=== PATIENT | male | born 1940 | race Caucasian/White ===

== ENCOUNTER 2016-07-14 12:00 | Inpatient (IN) | payer MEDICARE, MEDICAID ==
[~2016-07-14] VITALS: Ht 191.8 cm; Wt 120.4 kg
--- NOTE | ~2016-07-14 | CON ---
PATIENT'S NAME: JEFFREY Moss [facility] AGE: 76 Y [address] ROOM: [address] [address] LOCATION: GPCU ADMIT DATE: 07/14/2016 Consultation DISCHARGE DATE: FAMILY PHYSICIAN: Augustine Menon ATTENDING PHYSICIAN: Samira SZYMANSKI DATE OF CONSULTATION: 07/21/2016 REASON FOR CONSULT: Need for urgent hemodialysis, unsuccessful attempts at temporary dialysis access. HISTORY OF PRESENTING ILLNESS: This is a 76-year-old, male, admitted to [facility] after experiencing episodes of syncope with fall. This resulted in hemorrhage to his right kidney. The patient has known chronic kidney disease with a baseline creatinine of approximately 3.3. Creatinine was elevated on admission and currently remains 5.2. The patient also had elevated potassium on admission requiring treatment. The patient has had multiple failed attempts at temporary dialysis access and currently has no adequate access for dialysis. So far attempts of insertion to right internal jugular, right subclavian, and left subclavian. The patient is chronically on Coumadin for history of DVT, however, this is currently on hold for recent hemorrhage. Serial hemoglobin and hematocrits have been obtained and hemoglobin currently stable. The patient received 4 units of FFP to reverse INR level of 4 on admission. The patient denies any shortness of breath or chest pain. He denies nausea, vomiting, diarrhea or constipation. He denies any abdominal pain. Denies claudication. Denies any recent hematuria or melena since admission. Denies any fevers, chills or weakness. The patient has no history of previous dialysis access. History is positive for dyspnea on exertion. Positive for significant urine decreased prior to hospitalization. The patient has a history of alcoholism. Positive for ecchymosis and abrasions after a fall. PAST MEDICAL HISTORY: 1. Chronic kidney disease stage 3 to 4. 2. 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 3. Ischemic cardiomyopathy status post AICD. 4. Bladder cancer. 5. Prostate cancer. 6. Peptic ulcer disease. 7. Erectile dysfunction. 8. Hypertension. 9. Renal insufficiency. 10. History of obstructive uropathy. 11. History of tobacco abuse. PATIENT'S NAME: JEFFREY Moss [facility] AGE: 76 Y [address] ROOM: [address] [address] LOCATION: GPCU ADMIT DATE: 07/14/2016 Consultation DISCHARGE DATE: FAMILY PHYSICIAN: Augustine Menon ATTENDING PHYSICIAN: Samira SZYMANSKI PAST SURGICAL HISTORY: 1. AICD placement. 2. Radical cystectomy with ileal conduit formation. 3. Radiation therapy. 4. Laminectomy. 5. Left wrist surgery. 6. Right elbow surgery. 7. Surgical debridement of wound dehiscence. FAMILY HISTORY: Mother with hypertension and breast cancer. A brother with coronary artery disease and diabetes, and a daughter who from pulmonary embolism. SOCIAL HISTORY: The patient is a former smoker who quit approximately 20 years ago. He continues to drink 3 to 4 beers a day. Denies any illicit or illegal drug use. CURRENT MEDICATIONS: See medication record. ALLERGIES: IODINE, CONTRAST DYE AND PENICILLIN. REVIEW OF SYSTEMS: 12-point review of systems completed, positives addressed in history of presenting illness. PHYSICAL EXAMINATION: VITAL SIGNS: Heart rate 90, temperature 97.8, respiratory rate 12, oxygen saturations 92%, blood pressure 131/59. GENERAL: The patient is alert and oriented x3, in no acute distress or pain. SKIN: Overall warm, pink, and dry. He has scattered abrasions and ecchymosis to his face and left arm. NEUROLOGICAL: No focal deficits. Answers questions appropriately and follows commands. Equal strength bilaterally, 5/5. Normal sensation. HEENT: Head: Normocephalic and atraumatic. Ears: Without drainage. Eyes: Sclerae white. Conjunctivae pink. Extraocular movements intact. PERRLA. Mouth: Oral mucosa pink and moist. NECK: Without adenopathy. No evidence of JVD. No carotid bruit. Trachea is midline. RESPIRATORY: Lung sounds diminished bilaterally and expiratory wheezing on the right side, otherwise breath sounds are even and nonlabored. CARDIOVASCULAR: Regular rate and rhythm. No murmur or extra sounds. PATIENT'S NAME: TESS KIDD [facility] AGE: 76 Y [address] ROOM: [address] [place] [id number] LOCATION: GPCU ADMIT DATE: 07/14/2016 Consultation DISCHARGE DATE: FAMILY PHYSICIAN: Augustine Menon ATTENDING PHYSICIAN: Samira SZYMANSKI GASTROINTESTINAL: Bowel sounds active x4 quadrants. Soft. No organomegaly. Obese. EXTREMITIES: No cyanosis. No edema. Warm to touch. Bilateral radial and brachial pulses 2+. Active range of motion throughout. Lower extremity venous stasis. LABORATORY DATA: Chemistry: Sodium 136, potassium 4.4, chloride 103, CO2 25, BUN 68, creatinine 5.2, glucose 118, GFR 11, Hematology: Hemoglobin 8.4 and hematocrit 25.5. IMPRESSION: 1. Acute on chronic kidney injury. 2. Alcohol abuse. 3. Obesity. 4. Syncope. 5. Hyperkalemia. 6. History of deep venous thrombosis. PLAN: Per Nephrology, the patient will require hemodialysis. At this time, the patient does not have access and has had multiple failed attempts at temporary catheter placement. Though the patient has adequate veins on vein mapping for fistula, an AV fistula will take months to mature. At this time, we are unable to use the left arm due to presence of an abrasion. Vein mapping completed and reveals an adequate axillary vein on the right to support a graft. Therefore, we will plan for surgery for right arm Acuseal graft tomorrow, 07/22/[address] Dumont. Acuseal graft will be ready to use on the same day postoperatively for dialysis. Dr. Dumont has discussed risks and benefits with the patient. The patient is to remain n.p.o. after midnight and to receive 900 mg IV clindamycin prior to procedure. The patient's Coumadin has been on hold due to recent bleeding. The patient verbalizes understanding this plan and has no further questions or concerns at this time. Thank you for your consultation and for allowing us to participate in the care of this patient. ANNMARIE ROSALES APRN FOR DECLAN DUMONT MD TO/mihai PATIENT'S NAME: TESS KIDD [facility] AGE: 76 Y [address] ROOM: [place] [address] LOCATION: GPCU ADMIT DATE: 07/14/2016 Consultation DISCHARGE DATE: FAMILY PHYSICIAN: [employer], M. Juaquin ATTENDING PHYSICIAN: Samira SZYMANSKI /[id number] d: 07/22/16 0225 t: 08/02/16 1210, CONSULTATION REPORT
--- NOTE | ~2016-07-14 | ENPV ---
Vascular Upper Extremities Veins and Upper Extremity Vein Mapping Procedure Demographics Patient Name TESS KIDD Date of Study 07/21/2016 Patient Number [id number] Gender Male Date of 1940 Age 76 Visit Number [id number] Height Accession Number [id number] Weight Room Number G6319 BSA BMI Referring Tim Francis MD Interpreting Tim Francis MD Physician Radha Hogan Physician Physician Ordering Physician Tim Francis MD Cupola Melter Helper Wash Test Checker Camilo Walker [facility] Conclusions Summary The subclavian, axillary, brachial, basilic and cephalic veins have been examined and found to be widely patent. The cephalic and basilic vein(s) were mapped and are adequate for surgical use . The axillary, cephalic, and basilic vein diameters as listed. Procedure Type of Study: Veins:Upper Extremities Veins, Upper Extremity Right, Upper Extremity Vein Mapping, Pre-Fistula Evaluation NH. Indications for Study:Pre-op Fistulat map. Appropriate Use Criteria:9 Patient Status:Routine. Study Location:Inpatient Portable. Technical Quality:Adequate visualization. Velocities are measured in cm/s ; Diameters are measured in cm Right UE Vein Measurements 2D and Doppler Measurements + + + + +--------+ + !Location !Visualized !Compressibility !Thrombosis !Signal !Reflux ! + + + + +--------+ + !SCV !Yes !Yes !None !Phasic ! ! + + + + +--------+ + !Axillary !Yes !Yes !None !Phasic ! ! + + + + +--------+ + !Brachial !Yes !Yes !None !Phasic ! ! + + + + +--------+ + !Basilic !Yes !Yes !None !Phasic ! ! + + + + +--------+ + !Cephalic !Yes !Yes !None !Phasic ! ! + + + + +--------+ + Velocities are measured in cm/s ; Diameters are measured in cm Cephalic Mapping + ++---------+ +----+---------+ + ! !!Right ! !Left! ! ! + ++---------+ +----+---------+ + !Location !!AP Diam. !Trans Diam ! !AP Diam. !Trans Diam ! + ++---------+ +----+---------+ + !Cephalic at Prox UA !!0.45 !0.43 ! ! ! ! + ++---------+ +----+---------+ + !Cephalic at Mid UA !!0.47 !0.39 ! ! ! ! + ++---------+ +----+---------+ + !Cephalic at Dist UA !!0.37 !0.45 ! ! ! ! + ++---------+ +----+---------+ + !Cephalic at AF !!0.24 !0.28 ! ! ! ! + ++---------+ +----+---------+ + !Cephalic at Prox LA !!0.27 !0.4 ! ! ! ! + ++---------+ +----+---------+ + !Cephalic at Mid LA !!0.29 !0.33 ! ! ! ! + ++---------+ +----+---------+ + !Cephalic at Dist LA !!0.23 !0.29 ! ! ! ! + ++---------+ +----+---------+ + Basilic Mapping + ++-------+ +----+--------+ + ! !!Right ! !Left! ! ! + ++-------+ +----+--------+ + !Location !!AP Diam!Trans Diam ! !AP Diam !Trans Diam ! + ++-------+ +----+--------+ + !Basilic at Prox UA !!0.55 !0.5 ! ! ! ! + ++-------+ +----+--------+ + !Basilic at Mid UA !!0.53 !0.58 ! ! ! ! + ++-------+ +----+--------+ + !Basilic at Dist UA !!0.49 !0.49 ! ! ! ! + ++-------+ +----+--------+ + !Basilic at AF !!0.37 !0.39 ! ! ! ! + ++-------+ +----+--------+ + !Basilic at Prox LA !!0.27 !0.27 ! ! ! ! + ++-------+ +----+--------+ + !Basilic at Mid LA !!0.25 !0.25 ! ! ! ! + ++-------+ +----+--------+ + !Basilic at Dist LA !!0.21 !0.19 ! ! ! ! + ++-------+ +----+--------+ + Signature dtt: DECLAN WERNER dtely: 07/21/16 1611 Physician Self Edit
--- NOTE | ~2016-07-14 | HP ---
PATIENT'S NAME: TESS KIDD [facility] AGE: 76 Y [address] ROOM: [address] [place], [place] [address] LOCATION: [facility] ADMIT DATE: 07/14/2016 History & Physical DISCHARGE DATE: FAMILY PHYSICIAN: PHYSICIAN, UNKNOWN ATTENDING PHYSICIAN: Samira SZYMANSKI DATE OF SERVICE: CHIEF COMPLAINT: Syncope and right flank pain. HISTORY OF PRESENT ILLNESS: The patient is a 76-year-old gentleman with past medical history of DVT, on Coumadin; alcoholic cardiomyopathy, status post AICD; bladder cancer, status post chemoradiation with ileal conduit; and prostate cancer, status post TURP, who presents here from outside hospital with flank pain, syncope, and hyperkalemia. The patient reports that yesterday he got up from his chair and was trying to go to get his medication when he felt dizziness and fell to floor. The patient reports that he has lost his conscious and did not know for how long he lost his consciousness. The patient was able to crawl and called the EMS which brought him to [facility]. In [facility], the patient had a CT head and neck that was unrevealing. On labs, the patient was found to have potassium of 5.8 and creatinine of 3.8. The patient was given Lasix, IV fluid, and Kayexalate. The patient's lab was redrawn today this morning and shows potassium of 5.7 and creatinine of 5.3. As the patient has a chronic kidney disease stage III-IV and is followed by Dr. Menon, the patient was sent to our hospital for further investigation. The patient was also started on ceftriaxone for suspicious UTI. The patient reports that he lives by himself. He drinks 3-4 beers every day and denies history of withdrawal. The patient reports that he has heart failure and he is able to have some moderate activity with dyspnea. The patient reports that he has been experiencing right flank pain since Tuesday and decreased urine output through his Agosto catheter. He also reports that his urine appears cloudy. The patient denies chest pain, worsening shortness of breath, fever, chills, nausea, vomiting, or diarrhea. The patient reports that some pain around his head and back after the fall. MEDICAL HISTORY: 1. History of DVT, on Coumadin. 2. Ischemic cardiomyopathy, status post AICD. 3. Bladder cancer. 4. Prostate cancer. SURGICAL HISTORY: AICD placement. Ileal conduit placement. PATIENT'S NAME: TESS KIDD [facility] AGE: 76 Y [address] ROOM: [address] [place], [place] [address] LOCATION: [facility] ADMIT DATE: 07/14/2016 History & Physical DISCHARGE DATE: FAMILY PHYSICIAN: PHYSICIAN, UNKNOWN ATTENDING PHYSICIAN: Samira SZYMANSKI FAMILY HISTORY: Mother has hypertension and breast cancer, brother has heart disease and diabetes, and daughter of PE. SOCIAL HISTORY: He is a former smoker, quit in 1996 and he currently drinks 3-4 beers a day. MEDICATIONS: See MAR. REVIEW OF SYSTEMS: All systems have been reviewed and are negative except for what is mentioned in the HPI. PHYSICAL EXAMINATION: VITAL SIGNS: Afebrile. The patient is tachycardic with heart rate of 105. HEENT: Head: Normocephalic, atraumatic. Face: The patient has abrasion on his forehead and also abrasion around his right periorbital area with dressing on. Nose: No nasal discharge. Ears: No Arana sign. No ear discharge. NECK: Supple. CHEST: Decreased breath sounds in right lower lung clemente. No rhonchi, rales, or wheezes heard. HEART: Tachycardic. No murmurs, rubs, or gallops heard. ABDOMEN: Mild tenderness around the lower abdominal area with no rebound or guarding. Mild fluid shift noted. EXTREMITIES: Trace edema bilaterally. Lower extremity venous stasis change. SKIN: Extensive senile purpura of left upper extremity. Left upper extremity abrasion with dressing on, stable. MIDDLE CARD TENDER: The patient is alert and oriented x3. Motor and sensory, grossly intact. LABORATORY DATA: Sodium of 140, potassium of 5.4, CO2 of 18, glucose of 131, BUN of 66, and creatinine of 5.8. Albumin of 2.7. EKG: Normal sinus rhythm. No peaked T-waves or loss of P and QRS of 79 msec. ASSESSMENT AND PLAN: The patient is a 76-year-old gentleman with past medical history of chronic kidney disease, stage IV; history of deep venous thrombosis, on Coumadin; systolic congestive heart failure; bladder cancer; prostate cancer; and alcohol abuse, who presents here with syncope, right flank pain, and hyperkalemia. 1. Pyelonephritis. The patient is presenting with possible sepsis secondary PATIENT'S NAME: TESS KIDD [facility] AGE: 76 Y [address] ROOM: [address] [place], [place] [address] LOCATION: [facility] ADMIT DATE: 07/14/2016 History & Physical DISCHARGE DATE: FAMILY PHYSICIAN: PHYSICIAN, UNKNOWN ATTENDING PHYSICIAN: Samira SZYMANSKI to pyelonephritis as the patient has CVA tenderness and a UA that shows worsening cloudy urine. Urine culture is pending and blood culture is pending. The patient has had history of Enterococcus and E. coli infection in the past. We will start the patient on ceftriaxone and Zyvox. We will acquire a CT abdomen to further rule out obstructive pyelonephritis and also we will assess if the patient has ascites. I suspect the patient might have an underlying ascites even though the physical examination was difficult due to the patient's body habitus. We will acquire lactate and we will start gentle IV fluid hydration with half normal saline with 50 mEq of bicarbonate. 2. Acute on chronic kidney disease. The patient's renal function did not improve with Lasix and fluid administration. At this time, the patient appears stable. We will acquire a chest x-ray. We will start the patient on gentle hydration. I also suspect the patient might have some hepatorenal syndrome; however, we will first acquire CT just to assess for ascites. The patient might benefit from albumin challenge. We will consult Nephrology, Dr. Menon to follow up with the patient. 3. Hyperkalemia. Hyperkalemia etiology most likely secondary to kidney failure. Currently potassium is 5.4. There were no EKG changes. We will keep the patient on tele monitor. We will change IV fluids to half- normal saline with 50 mEq of bicarb and follow potassium daily. We will treat underlying etiology. 4. Alcoholic cardiomyopathy. The patient is currently not on diuretics at home. Currently, the patient is on gentle IV fluid hydration. We will keep continuous O2 saturation monitor. We will also acquire chest x-ray to further investigate if the patient has worsening of heart failure. We will continue the patient's Coreg at this moment. We will not start the patient on ANTONIO and ARB currently due to his BERTO. 5. History of deep venous thrombosis. The patient is currently on Coumadin. We will continue Coumadin. INR done at the outside hospital was 3. Pharmacy to dose Coumadin. 6. Syncope, etiology unknown. I suspect the patient might have some arrhythmia issue during his last syncope. Thus, we will acquire AICD interrogation to further investigate his heart status during his syncope. We will also acquire an echocardiogram for further investigation of structural heart disease. 7. Alcohol abuse. Discussion made about cessation. The patient reports he drinks up to 4 beers a day. He denies history of withdrawal. We will start the patient on thiamine 100 mg p.o. daily. We will assess for withdrawal during this admission. 8. Obesity, ongoing. I have personally reviewed the patient's medical record. Total time spent with the patient is greater than 70 minutes, more than 50% of the time is spent in direct patient care and patient consultation. The case was reviewed with the patient and nursing staff. All questions were answered to the PATIENT'S NAME: TESS KIDD [facility] AGE: 76 Y [address] ROOM: [place] [address] LOCATION: [facility] ADMIT DATE: 07/14/2016 History & Physical DISCHARGE DATE: FAMILY PHYSICIAN: PHYSICIAN, UNKNOWN ATTENDING PHYSICIAN: Samira SZYMANSKI patient's satisfaction. The patient will be admitted to PCU. The patient's code status is full code on admission. MD JOYCE MASSEY/mihai /[id number] D: T: [id number] HISTORY & PHYSICAL
--- NOTE | ~2016-07-14 | HP ---
PATIENT'S NAME: TESS KIDD [facility] AGE: 76 Y [address] ROOM: [address] [place] [address] LOCATION: [facility] ADMIT DATE: 07/14/2016 History & Physical DISCHARGE DATE: FAMILY PHYSICIAN: PHYSICIAN, UNKNOWN ATTENDING PHYSICIAN: Samira SZYMANSKI DATE OF SERVICE: ADDENDUM: This note is an addendum for initial H and P. The patient's CT of abdomen and pelvis shows huge right renal hemorrhage with surrounding perinephric edema. Also showed end-stage appearing left kidney which has decreased in size since previous CT. Right kidney essentially enveloped by this large bleed. Also shows liver, spleen, pancreas, and biliary tree to be normal. Right renal hemorrhage with surrounding perinephric edema. Etiology most likely secondary to fall and an INR level of 4. INR at outside hospital was 3, here repeated was 4. Hemoglobin is also 8. We will transfuse 4 units of FFP to decrease the INR level. We will check INR level 1 hour after FFP transfusion. We will also check hemoglobin every 8 hours. We will to transfuse for hemoglobin below 7. I have also involved Urology. Discussed with Dr. Colindres. Suggested reversal of INR with FFP and strict bedrest. Also, discussed finding with Dr. Menon. The patient most likely will end up being on dialysis on this admission. Finding was discussed with the patient. All questions were answered satisfactorily. MD JOYCE MASSEY/mihai /[id number] D: T: [id number] HISTORY & PHYSICAL
--- NOTE | ~2016-07-14 | OR ---
PATIENT'S NAME: TESS KIDD [facility] AGE: 76 Y [address] ROOM: [place] [address] LOCATION: GICU ADMIT DATE: 07/14/2016 OR/Procedure Report DISCHARGE DATE: FAMILY PHYSICIAN: PHYSICIAN, UNKNOWN ATTENDING PHYSICIAN: Samira SZYMANSKI SURGEON: Wisam Urrutia DO LINE LOCATOR: DATE OF PROCEDURE: 07/15/2016 PREOPERATIVE DIAGNOSIS: Need for urgent hemodialysis. POSTOPERATIVE DIAGNOSES: 1. Need for urgent hemodialysis. 2. Difficult venous access secondary to multiple central venous occlusions/stenoses. PROCEDURE: 1. Insertion of right femoral vein temporary hemodialysis catheter. 2. Attempted insertion of right internal jugular, right subclavian and left subclavian vein with of the each attempt. DESCRIPTION OF PROCEDURE: Mr. Rangel is a 76-year-old white male with the above-noted diagnosis. He states that he has a difficult IV access and has had multiple central lines in the remote past. Recently, he had a failed attempt at a transvenous ICD from the right subclavian area and told me he had a port in the left chest area, that developed problems and had to be removed. His anterior chest wall does show evidence of pronounced subcutaneous veins, especially over the left subclavian system and also some over the left shoulder as well as the right shoulder and chest area. We began with the right internal jugular vein. It was difficult to visualize with ultrasound, but we did not visualize one window, however, could not access the vein without significant resistance, likely from scar tissue at the area, and turned our attention with the ultrasound to the left internal jugular area and could not visualize the left internal jugular vein on ultrasound. I attempted the left subclavian, did get access, but again a wire would not feed and finally the right subclavian would access, the wire would feed to approximately 11 cm, however, met significant resistance at this point. Therefore, these sites were abandoned, we turned our attention to the right femoral vein. This area was again sterilely prepped and draped, 1% lidocaine infiltrated, and the vein was accessed without difficulty and a guidewire fed without any resistance. A stab incision was made at the base of the needle, and the needle was withdrawn. Soft tissue after dilators x2 were placed over the guidewire and withdrawn and then a temporary hemodialysis catheter was placed over the guidewire, and the guidewire was withdrawn. Each lumen aspirated very easily for dark venous blood and was flushed with sterile PATIENT'S NAME: TESS KIDD [facility] AGE: 76 Y [address] ROOM: [place] [address] LOCATION: [facility] ADMIT DATE: 07/14/2016 OR/Procedure Report DISCHARGE DATE: FAMILY PHYSICIAN: PHYSICIAN, UNKNOWN ATTENDING PHYSICIAN: Samira SZYMANSKI. Two dialysis lumens were then locked with heparin. It was secured into position with a 2-0 nylon and sterile dressing was applied. Chest x-ray is pending. DO DEV GEE/mihai /[id number] d: 07/15/16 1826 t: 07/16/16 0838, OPERATIVE SUMMARY
--- NOTE | ~2016-07-14 | DS ---
PATIENT'S NAME: JEFFREY Moss [facility] AGE: 76 Y [address] ROOM: [place] [address] LOCATION: GPCU ADMIT DATE: 07/14/2016 Discharge Summary DISCHARGE DATE: 07/29/2016 FAMILY PHYSICIAN: Sunday Menon MD ATTENDING PHYSICIAN: Samira SZYMANSKI PRINCIPAL DISCHARGE DIAGNOSIS: Severe sepsis, secondary to Enterobacter cloacae, urinary tract infection. SECONDARY DIAGNOSES: 1. Right renal hemorrhage, status post fall, on chronic anticoagulation therapy. 2. Laccq-ay-xoxsxka kidney disease with acute kidney injury. 3. Chronic kidney disease, stage 3, on admission, and end-stage renal disease, on hemodialysis, at the time of discharge. 4. 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 5. Chronic systolic and diastolic congestive heart failure. 6. Obesity. 7. Constipation. 8. Dyspepsia. 9. History of recurrent deep vein thrombosis. 10. Paroxysmal atrial fibrillation was in normal sinus rhythm for most of the hospitalization. 11. Alcohol use without history of withdrawal. 12. Chronic urostomy, status post bladder resection for cancer. 13. Hyperkalemia. CONSULTATIONS: 1. Dr. Menon from Nephrology. 2. Urology. PROCEDURES: 1. Acuseal graft placement on 07/22/2016 in the right upper arm. 2. Temporary dialysis catheter in the right groin. BRIEF HISTORY: Mr. Rangel is a very pleasant 76-year-old gentleman with those things I said admitted from the outside hospital after he fell and had some loss of consciousness and was brought to the [facility]. It was found that he had elevated potassium and a creatinine of 3.8. He was transferred from [facility] with suspicion for UTI. He was initially treated with ceftriaxone. Imaging showed a large retroperitoneal hemorrhage, urine culture eventually led to Enterobacter cloacae, which was susceptible to Levaquin; although, it was multidrug-resistant and he completed a course of Levaquin and no antibiotics were continued after that. PATIENT'S NAME: JEFFREY Moss [facility] AGE: 76 Y [address] ROOM: [place] [address] LOCATION: GPCU ADMIT DATE: 07/14/2016 Discharge Summary DISCHARGE DATE: 07/29/2016 FAMILY PHYSICIAN: Sunday Menon MD ATTENDING PHYSICIAN: Samira SZYMANSKI The patient was initially treated with fluids and some Lasix and his renal function did not improve. He required emergent dialysis. Eventually after attempts at the tunnel cath on 07/22/2016 were unsuccessful, he had the Acuseal graft placed on 07/23/2016, and that worked well at dialysis. Although, it was noted the patient tended to clot easily, by the end of dialysis required extra heparin. The patient is very pleasant during his stay and did not appear to have any withdrawal symptoms. He was started on thiamine and continued with this during the hospitalization. The patient did have anemia, status post retroperitoneal hemorrhage, and was transfused with 2 units early in the hospitalization and his hemoglobin stabilized. He will be treated with iron in dialysis and his hemoglobin on day of discharge was 8.9. The patient did develop some nausea with vomiting and several days prior to discharge he was complaining of what he called a sour stomach and took a lot of Tums. He was struggling with having a bowel movement despite increasing bowel regimen for him. He ended up requiring Fleet's enema with some mag citrate. He had 3 bowel movements on the day prior to discharge, but still had some vomiting on the morning of. His discharge abdominal film showed some dilated loops and perhaps early ileus, but he was able to move his bowels well after the Fleet's enema and mag citrate. I did discuss his current issues with Tracy Triana and she agreed to accept him in transfer to [facility]. The patient had intermittent nonsustained episodes of v-tach, which were also asymptomatic. He does have an AICD in place and known alcoholic cardiomyopathy, which is followed by the help desk assistant that he can see in [place]. We did increase his Coreg for this. INSTRUCTIONS AT DISCHARGE: Renal diet, cardiac, regular texture, weightbearing as tolerated with fall precautions, PT and OT evaluations, he has ileal conduit drain into a bag and changed p.r.n. FOLLOW UP: 1. Follow up with the urologist Dr. Bond in [place] in 2-[address] scan of the abdomen and pelvis in 2-[address] Bond appointment. 2. Dr. Dumont, Vascular in 2 weeks for stitch removal at the Acuseal graft in the right upper arm. 3. Dr. Estrada, Cardiology, on Tuesday the . PATIENT'S NAME: TESS KIDD [facility] AGE: 76 Y [address] ROOM: [id number] [place], [place] [address] LOCATION: GPCU ADMIT DATE: 07/14/2016 Discharge Summary DISCHARGE DATE: 07/29/2016 FAMILY PHYSICIAN: Sunday Menon MD ATTENDING PHYSICIAN: Samira SZYMANSKI MEDICATIONS AT DISCHARGE: 1. Coreg 6.25 mg p.o. b.i.d. up from 3.125 mg b.i.d. to be held on dialysis days. 2. EMLA patch to the fistula graft 1 hour prior to dialysis. 3. Protonix 40 mg p.o. daily for his reflux. 4. Thiamine 100 mg p.o. everyday for his history of alcohol use. 5. [place] 5/325 1-2 p.r.n. every 4 hours for pain. 6. Artificial Tears both eyes p.r.n. 7. Calcium carbonate 3-4 hours p.r.n. dyspepsia. 8. Benadryl 25 mg at h.s. for insomnia. 9. Colace 100 mg p.o. b.i.d. for constipation. 10. Senna 1 p.o. b.i.d. for constipation. 11. Dulcolax suppository 1 OR every 24 hours p.r.n. no bowel movement. 12. Pepcid 20 mg p.o. b.i.d. for dyspepsia. CONDITION AT DISCHARGE: Good. Time spent in discharge is greater than 60 minutes in coordination and care with the patient regarding acute constipation issues with other follow up scheduling and with discussions with the accepting provider. KARON CARDONA MD LM/mihai /[id number] CC: Tracy Triana PA-C d: 07/31/16 0349 t: 08/25/16 1440, DISCHARGE SUMMARY
--- NOTE | ~2016-07-14 | CON ---
PATIENT'S NAME: JEFFREY Moss [facility] AGE: 76 Y [address] ROOM: [place] [address] LOCATION: GPCU ADMIT DATE: 07/14/2016 Consultation DISCHARGE DATE: FAMILY PHYSICIAN: Augustine Menon ATTENDING PHYSICIAN: Samira SZYMANSKI DATE OF CONSULTATION: 07/14/2016 [facility] Nephrology Consultation REASON FOR CONSULTATION: Acute kidney injury on CKD, stage 3; history of obstructive uropathy and contrast nephropathy. HISTORY OF PRESENT ILLNESS: This is a 76-year-old male patient, who is well known to Dr. Menon from previous office visits. The patient presented to [facility] with acute onset of syncope and falling with 3 to 4-day complaints of right-sided abdominal pain. The patient has taken little fluid or nutrition over the past few days and reports his urine output has significantly declined since last Tuesday. The patient does have a complicated past medical history including DVT on Coumadin therapy, alcoholic cardiomyopathy, status post AICD, bladder cancer status post chemotherapy and radiation with ileal conduit, prostate cancer status post TURP, and history of CKD, stage 3 with baseline creatinine of 3.3 on 03/30/2016. Today, the patient's creatinine is elevated to 5.8, and his potassium is 5.4. The patient had received Lasix, IV fluid, and Kayexalate prior to his arrival. Therefore due to the patient's recent acute kidney injury with elevation of his creatinine from 3.3 to 5.8, and hyperkalemia, Dr. Menon has been asked to follow the patient while he is hospitalized. At the time of exam, the patient is in no acute distress and awaiting results of CT abdomen and pelvis. There is concern the patient is having complications of a UTI/pyelonephritis. The patient does not take any NSAIDs on his home medication list. PAST MEDICAL HISTORY: As listed above includin. History of DVT, on Coumadin. 2. Ischemic cardiomyopathy status post AICD. 3. Bladder cancer. 4. Prostate cancer. 5. CKD, stage 3 to 4. 6. History of contrast nephropathy. PATIENT'S NAME: JEFFREY Moss [facility] AGE: 76 Y [address] ROOM: [place] [id number] LOCATION: GPCU ADMIT DATE: 07/14/2016 Consultation DISCHARGE DATE: FAMILY PHYSICIAN: Augustine Menon ATTENDING PHYSICIAN: Samira SZYMANSKI 7. History of obstructive uropathy. 8. History of ileal conduit. 9. Peptic ulcer disease. 10. Erectile dysfunction. 11. History of tobacco abuse. PAST SURGICAL HISTORY: Includes: 1. TURP. 2. Radical cystectomy with ileal conduit formation and also radiation therapy. 3. Laminectomy. 4. Left wrist surgery. 5. Right elbow surgery. 6. AICD placement. 7. Surgical debridement of a wound dehiscence. FAMILY HISTORY: Significant for hypertension and breast cancer in his mother. His brother had coronary artery disease, and diabetes, and a sister of a PE. SOCIAL HISTORY: The patient is a former smoker. Reported to have stopped smoking in 1996, but he currently continues to drink 3 to 4 beers a day. Denies any illicit drug use. ALLERGIES: IODINATED CONTRAST MEDIA, PENICILLINS, AND IODINE. CURRENT HOME MEDICATIONS: Include: 1. Albuterol 2 puffs inhalation q.4 hours p.r.n. shortness of breath. 2. Carvedilol 3.125 mg twice a day. 3. Keflex 500 mg daily. 4. Vitamin D3, 50,000 units p.o. every 30 days. 5. Oxycodone 1 tablet p.o. q.6 hours p.r.n. pain. 6. Warfarin 7.5 mg q.48 hours and 5 mg q.48 hours alternating with 7.5 mg dose. REVIEW OF SYSTEMS: GENERAL: Denies fever, chills, or night sweats. HEENT: Eyes; no double vision or blurred vision. Nose; no epistaxis or rhinorrhea. Mouth; no gingival bleeding. Throat; no sore throat, hoarseness, or cough. RESPIRATORY: Denies wheezing or hemoptysis. PATIENT'S NAME: TESS KIDD [facility] AGE: 76 Y [address] ROOM: [id number] [place], [place] [address] LOCATION: GPCU ADMIT DATE: 07/14/2016 Consultation DISCHARGE DATE: FAMILY PHYSICIAN: Augustine Menon ATTENDING PHYSICIAN: Samira SZYMANSKI CARDIOVASCULAR: Denies any chest pain or palpitations. GASTROINTESTINAL: Complains of some nausea. Denies any vomiting. Denies diarrhea at this time. GENITOURINARY: Continues to make urine. However, this is significantly decreased over the last 3 to 4 days. Denies any hematuria. Does have a history of ileal conduit. MUSCULOSKELETAL: Complains of generalized arthralgias secondary to fall. HEMATOLOGICAL: Positive for bruising over his face and multiple ecchymotic areas to his upper extremities. IMMUNOLOGICAL: Denies any recent infections. PSYCHIATRIC: Denies depression or anxiety. NEUROLOGICAL: Positive for syncope. PHYSICAL EXAMINATION: VITAL SIGNS: Blood pressure is 112/51, pulse is 88, respirations 18, temperature 97.8, and saturations are 90% on 1 L nasal cannula. GENERAL: On exam, this is a very pleasant, alert and oriented, white male who appears his approximate stated age and is in no acute distress. HEENT: Head; normocephalic, with abrasions noted to his right face and forehead. Nose is midline. Mouth; no gingival bleeding. Throat is without lymphadenopathy or carotid bruits. No JVD noted. RESPIRATORY: Lung sounds are clear to auscultation anteriorly and posteriorly. Breaths are nonlabored. The patient is on 2 L nasal cannula. CARDIOVASCULAR: Regular rate and rhythm with no appreciable murmurs, rubs, or thrills. ABDOMEN: Distended. Bowel sounds are distant and positive. Abdomen is tender diffusely. CVA tenderness is negative. MUSCULOSKELETAL: Extremities show trace lower extremity edema bilaterally. There is noted venous stasis changes bilaterally in the lower leg. SKIN: Does show extensive senile purpura of the left upper extremity with ecchymotic areas noted to the face. Abrasions also noted to the face. Left upper extremity abrasion with dressing on it, stable. NEUROLOGIC: Cranial nerves 2 through 12 are grossly intact. The patient is alert and oriented to person, place, and time. LABORATORY DATA: Sodium 140, potassium 5.4, CO2 is 18, glucose of 103, BUN is 66, creatinine 5.8, and albumin is 2.7. EKG shows normal sinus rhythm with no acute ST-T wave abnormalities. ASSESSMENT AND PLAN: 1. Acute kidney injury on chronic kidney disease, stage 3 to 4. Uncertain of the current etiology of the patient's acute kidney injury. However, the patient has had obstructive uropathy and contrast nephropathy in the past which could contribute to the patient's worsening creatinine at this PATIENT'S NAME: TESS KIDD [facility] AGE: 76 Y [address] ROOM: [id number] [place], [place] [address] [facility]: [facility] ADMIT DATE: 07/14/2016 Consultation DISCHARGE DATE: FAMILY PHYSICIAN: Augustine Menon ATTENDING PHYSICIAN: Samira SZYMANSKI time. The patient is currently presenting with possible sepsis secondary to pyelonephritis as the urinalysis is currently pending. The patient is also awaiting for the results of CT abdomen and pelvis to rule out any obstructive pyelonephritis. Further recommendations will be forthcoming with these results. In the interim, we will continue to hold all nephrotoxic agents at this time. 2. Hyperkalemia. The patient's potassium is 5.4, currently. There are no acute ST-T wave abnormalities on EKG. We will continue at this time and monitor potassium in the morning. 3. Long-term anticoagulation in the form of Coumadin. Therapeutic goal is 2.0 to 3.0. We will order a PT/INR for further recommendations. 4. Syncope, etiology unknown. The patient does have AICD and we will seek interpretation of this device. This patient has been seen and assessed by Dr. Menon. His care is being conducted in consultation with Dr. Menon as well as Larissa Keating DNP, [place]. We will plan further recommendations as they are forthcoming. LARISSA KEATING DNP, APRN FOR Sunday MD KAIN RODGERS/mihai /[id number] d: 07/19/16 1859 t: 08/07/16 1151, CONSULTATION REPORT
--- NOTE | ~2016-07-14 | ENPV ---
Vascular Upper Extremities Veins Procedure Demographics Patient Name TESS KIDD Date of Study 07/19/2016 Patient Number [id number] Gender Male Date of 1940 Age 76 Visit Number [id number] Height Accession Number [id number] Weight Room Number G6319 BSA BMI Referring Ulysses Christie MD Interpreting Carine Hartmann Physician Physician Physician Ordering Physician Ulysses Christie Molder Apprentice Machinist [employer] Liliana Hartmann Conclusions Summary The internal jugular and subclavian veins are patent bilaterally. The left internal jugular and left subclavian veins, are smaller in diameter and show diminished flow. No Thrombosis seen. Procedure Type of Study: Veins:Upper Extremities Veins, Upper Extremity Right. Additional Indications:Pre-Dialysis catheter/Patency Patient Status:Routine. Study Location:Inpatient Portable. Technical Quality:Adequate visualization. Velocities are measured in cm/s ; Diameters are measured in cm Right UE Vein Measurements 2D and Doppler Measurements + + + + +--------+ + !Location !Visualized !Compressibility !Thrombosis !Signal !Reflux ! + + + + +--------+ + !IJV !Yes !Yes !None !Phasic ! ! + + + + +--------+ + !SCV !Yes !Yes !None !Phasic ! ! + + + + +--------+ + Left UE Vein Measurements 2D and Doppler Measurements +---------+ + + + + + !Location !Visualized !Compressibility !Thrombosis !Signal !Reflux ! +---------+ + + + + + !IJV !Yes !Yes !None !Diminished ! ! +---------+ + + + + + !SCV !Yes !Yes !None !Diminished ! ! +---------+ + + + + + Signature dtt: Lio Wade dtely: 07/19/16 1103 Physician Self Edit
--- NOTE | ~2016-07-14 | CON ---
PATIENT'S NAME: TESS KIDD [facility] AGE: 76 Y [address] ROOM: [place] [address] LOCATION: GICU ADMIT DATE: 07/14/2016 Consultation DISCHARGE DATE: FAMILY PHYSICIAN: PHYSICIAN, UNKNOWN ATTENDING PHYSICIAN: Samira SZYMANSKI DATE OF CONSULTATION: 07/14/2016 REFERRING PHYSICIAN: Augustine Menon HISTORY: The patient is a 76-year-old male, transferred from [facility]. The patient complained of right-side flank pain after falling at home. Abdominopelvic CT scan was performed, which revealed a large right renal hematoma. The patient also has a history of renal insufficiency. He is also status post radical cystectomy and ileal conduit for bladder cancer back in 2005. The patient has a history of DVTs and was anticoagulated at that time. His INR was 4.08, and his PT was 43.5. Since then, the patient has received treatment for his elevated INR. The patient has obvious renal trauma secondary to the fall and right perirenal hematoma. We will treat the patient as renal trauma patient with bed rest and serial hemoglobin and hematocrit. PAST MEDICAL HISTORY: Significant for bladder cancer, history of DVTs, peptic ulcer disease, erectile dysfunction, congestive heart failure, hypertension, and renal insufficiency. PAST OPERATIONS: Include TURP, radical cystectomy with ileal conduit formation and also a radiation therapy, laminectomy, left wrist surgery, right elbow surgery, ICD placement, surgical debridement of wound dehiscence. MEDICATIONS: 1. Albuterol inhaler. 2. Tylenol p.r.n. 3. Coreg 3.125 mg at home. 4. Proventil. 5. Percocet. ALLERGIES: IODINE CONTRAST DYE AND PENICILLIN. SOCIAL HISTORY: The patient has a history of alcohol abuse. The patient has smoked 3 pack of cigarettes a day before stopping in 1996. The patient continues to drink 1 to 3 beers daily. PATIENT'S NAME: TESS KIDD [facility] AGE: 76 Y [address] ROOM: [place] [address] LOCATION: [facility] ADMIT DATE: 07/14/2016 Consultation DISCHARGE DATE: FAMILY PHYSICIAN: PHYSICIAN, UNKNOWN ATTENDING PHYSICIAN: Samira SZYMANSKI REVIEW OF SYSTEMS: Significant for headache, hematuria following the fall. PHYSICAL EXAMINATION: GENERAL: An obese, elderly male, resting comfortably. HEENT: Extraocular motion intact. No nasal or ear drainage noted. Facial bruising is present. LUNGS: Clear bilaterally without wheezes. CARDIAC: Regular rhythm and rate. ABDOMEN: Obese, soft, and nontender. Normoactive bowel sounds throughout. Right ileal conduit is present. Pain and draining currently clear yellow urine. MUSCULOSKELETAL: Full range of motion. NEURO: Grossly intact. SKIN: Within normal limits. IMPRESSION: 1. Right renal trauma secondary to fall. 2. Chronic renal disease. 3. History of bladder cancer. PLAN: 1. Bed rest. 2. Check serial crits. 3. Follow with Nephrology for renal insufficiency. MD ANGELA BILLINGS/mihai /[id number] d: 07/15/16 0301 t: 07/17/16 1237, CONSULTATION REPORT
--- NOTE | ~2016-07-14 | OR ---
PATIENT'S NAME: TESS KIDD [facility] AGE: 76 Y [address] ROOM: [place] [id number] LOCATION: GPCU ADMIT DATE: 07/14/2016 OR/Procedure Report DISCHARGE DATE: FAMILY PHYSICIAN: Augustine Menoniaz ATTENDING PHYSICIAN: Samira SZYMANSKI SURGEON: Tito Dumont MD COLLEGE HIRE: DATE OF PROCEDURE: 07/22/2016 PRE OPERATIVE DIAGNOSIS: End-stage renal disease. POSTOP DIAGNOSIS: End-stage renal disease. PROCEDURE: Right arm Acuseal graft. SHOE CUTTER: ROBIBE Hall. ANESTHESIA: General. ESTIMATED BLOOD LOSS: 30 mL. OPERATIVE FINDINGS: Good thrill and bruit in the axillary vein. Good radial and ulnar signals at end of case. DESCRIPTION OF PROCEDURE: The patient was brought to the operating room, placed supine on the operating table placed under general anesthesia, prepped and draped in a sterile manner. Preoperative time-out was performed. The patient received preoperative antibiotics. We made a standard incision 2 cm proximal to the antecubital fossa in a vertical manner. Dissected down the fascia, incised the fascia in a longitudinal manner. Dissected out the brachial artery. We then performed a vertical incision in the axilla and dissected down the fascia and incised the fascia in a longitudinal manner. Dissected out the axillary vein in a 360-degree fashion. We then tunneled a 4- 7 Acuseal graft from one incision to the next. We then gave 5000 units of heparin. We clamped proximal distal artery, made an arteriotomy, size of 4 mm using an 11 blade as well as Parson scissors. We then did a standard 6-0 Prolene anastomosis from the graft to the artery. We removed the clamps. There was excellent flow into the graft. We then clamped it with a graft clamp. We then performed a venotomy to a size of 7 mm and performed in a similar fashion an anastomosis from the graft to the vein. Removed the clamps. There was excellent thrill and bruit. We incised the axillary vein. We were not to able to feel thrill in the Acuseal due to its thickness. There was a strong radial and ulnar signal at the end of the case. Protamine was used to reverse the heparin. Thrombin was used locally in the wound. Deep layers were closed with 2-0 and 3-0 Vicryl. The skin was closed with PATIENT'S NAME: TESS KIDD [facility] AGE: 76 Y [address] ROOM: [id number] [place] [id number] LOCATION: [facility] ADMIT DATE: 07/14/2016 OR/Procedure Report DISCHARGE DATE: FAMILY PHYSICIAN: Augustine Menon ATTENDING PHYSICIAN: Samira SZYMANSKI interrupted 4-0 nylon. The patient tolerated the procedure well and transferred to the recovery room and then back to the floor. MD JAGDISH SMITH/mihai /[id number] d: 07/23/16 0016 t: 07/23/16 1229, OPERATIVE SUMMARY
[2016-07-14 12:53] LABS: ALBUMIN 2.7 gm/dL (3.5-5.0); ANION GAP 17.4 (10.0-19.0); CALCIUM 7.6 mg/dL (8.5-10.5); PHOSPHORUS 4.9 mg/dL (2.5-4.9); POTASSIUM 5.4 mMol/L (3.7-5.1)
[2016-07-14] MEDS ORDERED: COREG 3.1253.125 MG PO (12:55)
[2016-07-14] MEDS ORDERED: KEFLEX500 MG PO (12:56)
[2016-07-14] MEDS ORDERED: COUMADIN ** IA5 MG PO ×2 (12:56→12:57)
[2016-07-14] MEDS ORDERED: PERCOCET 10-321 EACH PO (12:56)
[2016-07-14] MEDS ORDERED: PROVENTIL OR V6.7 GM INH (12:58)
[2016-07-14] MEDS ORDERED: VITAMIN D50000 UNIT PO (12:58)
[2016-07-14 12:59] LABS: CREATININE 5.8 mg/dL (0.6-1.3)
--- NOTE | 2016-07-14 12:59 | NUR ---
Pt is 76 y/o male admit for renal failure for hospitalist. Pt alert and oriented x3. Resides at home by himself. Allergy to iodine,iodine contrast, and PCN. REd and yellow bracelet on. REd socks on. Pt came via ambulance from [facility]. Hx bladder ca,cystectomy w ileal conduit,prostate ca, DVT's,TIA,SOB,pacemaker/AICD,htn,anxiety,depression,CKD,hayfever. Pt had a syncopal episode at home and has been c/o flank pain x 4 days. Has multiple abrasions to face and left arm. Having decreased urine output.
[2016-07-14 13:41] LABS: ALBUMIN 2.8 gm/dL (3.5-5.0); ALK PHOS 70 IU/L (33-138); ALT 15 IU/L (12-78); AST 15 IU/L (10-40); TOTAL BILIRUBIN 0.5 mg/dL (0.0-1.5); TOTAL PROTEIN 6.2 g/dL (6.0-8.4)
[2016-07-14 14:05] LABS: BASOPHIL % 0.3 %; EOSINOPHIL % 0.1 %; HEMATOCRIT 26.7 % (37.0-53.0); IMMATURE GRANULOCYTE # 0.1 K/uL (0.0-0.3); IMMATURE GRANULOCYTE % 0.5 %; LYMPHOCYTE # 1.3 K/uL (0.8-4.0); LYMPHOCYTE % 11.5 %; MCH 31.6 pg (27.0-34.0); MCV 105.5 fl (83.0-98.0); MONOCYTE # 1.2 K/uL (0.0-1.0); MONOCYTE % 11.1 %; MPV 9.8 fl (9.4-12.4); NEUTROPHIL # (ANC) 8.5 K/uL (1.4-9.0); NEUTROPHIL % 76.5 %; NRBC % 0 /100WBC (0-0.00); PLATELET COUNT 206 K/uL (150-450); RBC 2.53 M/uL (3.50-5.50); RDW-CV 15.5 % (11.9-14.6); WBC 11.1 K/uL (4.0-11.0)
[2016-07-14 14:11] LABS: INR - (THERAPEUTIC) 4.08 (0.92-1.07); PROTIME 43.5 SECONDS (9.8-11.4); PTT 47 SECONDS (25-32)
[2016-07-14 15:42] LABS: BICARBONATE 17.5 mmol/L (18.0-23.0); LACTATE 0.9 mEq/L (0.50-1.60); PCO2 39 mmHg (35-45); PO2 54 mmHg (80-90)
[2016-07-14 16:54] LABS: HEMATOCRIT 24.8 % (37.0-53.0); HEMOGLOBIN 7.6 g/dL (11.0-16.0)
--- NOTE | 2016-07-14 17:58 | NUR ---
PATIENT ARRIVED TO ICU AT 1735. DROWSY. ORIENTED X3. PUPILS EQUAL AND REACTIVE. MOVES ALL 4 EXTREMITIES SPONTANEOUSLY AND TO COMMANDS. EQUAL STRENGTH THROUGHOUT. SPEEC IS SLOW. NO FACIAL ASYMMETRY. PATIENT IN SINUS TACHYCARDIA. HR 100-110S. PULSES 2,1,1. BP STABLE. SBP 120-130S. MAP>65. AFEBRILE. PATIENT PLACED ON 2 L NASAL CANNULA SATS 85% WHEN ARRIVED TO ICU ON ROOM AIR. BOWEL SOUNDS HYPOACTIVE. ABDOMEN DISTENDED AND FIRM. CONDUIT, LIGHT GREEN OUTPUT. PATIENT DENIES NAUSEA/VOMITING. SKIN DRY THROUGHOUT. COCCYX SLIGHTLY RED. R) FLANK REDNESS. SCATTERED SCABS FROM FALL. L) HAND PIV, NOW INFUSING KCENTRA. FOLLOW UP: TRANSFUSE 1 UNIT OF PRBC IF HGB LESS THAN 7
--- NOTE | 2016-07-14 18:28 | NUR ---
1345 PT ADMITTED TO [address] SZYMANSKI. PT HAS LARGE SKNI TEAR ON LT UPPER ARM THAT HAS A FLAP, AND ANOTHER FLAP THAT RUNS UP AND DOWN ON HIS ARM. THE FACILITY THAT HE CAME FROM HAD PUT STERI STRIPS ON THE LONG FLAP AND VASELINE GAUZE ON THE SMALLER TOP FLAP. DID NOT REMOVE THE STERIS FOR FEAR OF CAUSING MORE OF A TEAR, DID REPLACE THE VASELINE GAUZE AND WRAPPED THE WHOLE THING IN KERLIX. AT TIME OF ADMIT PT'S ABDOMEN IS VERY DISTENDED, SORE, AND PT IS VERY NAUSOUS WITH ANY MOVEMENT, HE HAS A STOMA TO HIS LOWER LT SIDE THAT HAS GREEN GALAN DISCHARGE SEEPING OUT OF THE STOMA AND VERY LITTLE URINE. WHAT URINE THERE IS, IS YELLOW GALAN COLORED AND FOUL SMELLING. HE ALSO HAS SOME ABRASIONS TO HIS FACE UNDER HIS LEFT EYE, FROM HIS FALL. THERE IS AN SIAD IN HIS LT FLANK THAT YOU CAN FEEL, [employer] DID COME UP AND INTEROGATE IT. STARTED TO HANG HIS NUMEROUS MEDS THAT THE DR ORDERED. WAS GOING TO TRY FOR ANOTHER IV WHEN THE DECSION WAS MADE TO GO TO ICU LATE THIS PM. WAS ABLE TO START BOTH ANTIBIOTICS, VITAMIN K, FOR INR OF 4.8, AND SODIUM BICARB AT 75 ML/HR ORDERED. PRIOR TO THIS HE DID GO FOR A CT OF THE ABDOMEN AND WAS FOUND TO HAVE A BLEEDING KIDNEY. TO ICU PER BED. REPORT GIVEN TO MILLY
[2016-07-14 19:25] LABS: INR - (THERAPEUTIC) 1.16 (0.92-1.07); PROTIME 12.2 SECONDS (9.8-11.4)
[2016-07-14 23:55] LABS: HEMATOCRIT 21.6 % (37.0-53.0); HEMOGLOBIN 6.8 g/dL (11.0-16.0)
--- NOTE | 2016-07-15 05:44 | NUR ---
PT'S NEURO STATUS REMAINS INTACT. HR DECREASING FROM 110S TO 80S-90S. BP BECOMING MORE HYPERTENSIVE SHIFT PROGRESSES. AFEBRILE. 0000 H/H WAS 6.8/21.6; ORDERS RECEIVED TO TRANSFUSE TWO UNITS PRBCS OVER 4 HOURS EACH. SECOND UNIT CURRENTLY INFUSING. Q8H H/H RETIMED TO BE DRAWN 1H AFTER INFUSION OF SECOND UNIT. SIPS OF WATER ATTEMPTED NEAR END OF SHIFT-PT TOLERATING WITHOUT N/V. PRN PHENRGAN AND PRN ZOFRAN EACH GIVEN X1 DOSE THIS SHIFT. UOP INCREASING SHIFT PROGRESSED-TOTAL OF 170 ML OUT FOR 12 HR. THOMAS NEWTON RN
[2016-07-15 09:50] LABS: BASOPHIL % 0.3 %; EOSINOPHIL # 0.1 K/uL (0.0-0.5); EOSINOPHIL % 0.7 %; HEMOGLOBIN 7.9 g/dL (11.0-16.0); IMMATURE GRANULOCYTE # 0.1 K/uL (0.0-0.3); IMMATURE GRANULOCYTE % 1.3 %; LYMPHOCYTE # 0.7 K/uL (0.8-4.0); LYMPHOCYTE % 10.2 %; MCH 30.9 pg (27.0-34.0); MCHC 31.6 gm/dL (32.0-36.5); MCV 97.7 fl (83.0-98.0); MONOCYTE # 0.8 K/uL (0.0-1.0); MONOCYTE % 12.1 %; MPV 9.6 fl (9.4-12.4); NEUTROPHIL # (ANC) 5.3 K/uL (1.4-9.0); NEUTROPHIL % 75.4 %; NRBC % 0.3 /100WBC (0-0.00); PLATELET COUNT 143 K/uL (150-450); RBC 2.56 M/uL (3.50-5.50); RDW-CV 18.7 % (11.9-14.6)
[2016-07-15 10:02] LABS: ALBUMIN 2.7 gm/dL (3.5-5.0); ANION GAP 17.5 (10.0-19.0); CALCIUM 7.5 mg/dL (8.5-10.5); PHOSPHORUS 5.6 mg/dL (2.5-4.9); POTASSIUM 5.5 mMol/L (3.7-5.1)
[2016-07-15 10:04] LABS: CREATININE 6.5 mg/dL (0.6-1.3)
[2016-07-15 14:10] LABS: INR - (THERAPEUTIC) 0.97 (0.92-1.07); PROTIME 10.2 SECONDS (9.8-11.4)
--- NOTE | 2016-07-15 16:26 | NUR ---
SIGNIFICANT EVENT: PATIENT ALERT, ORIENTED X3. OPENS EYES SPONTANEOUSLY AND TO VOICE. PUPILS EQUAL AND REACTIVE. SPEECH IS CLEAR AND APPROPRIATE. PATIENT DENIES ANY NUMBNESS, TINGLING, OR PAIN. PATIENT MOVES ALL 4 EXTREMITIES SPONTANEOUSLY AND TO COMMANDS. PER MD ORDER, STRICT BED REST. PATIENT REPOSITIONED EVERY 2 HOURS. GENERALIZED WEAKNESS, EQUAL STRENGTH THROUGHOUT. NO FACIAL ASYMMETRY. PATIENT HAS BEEN IN SINUS RHYTHM, HR 80-90S. PULSES PALPABLE THROUGHOUT. BP STABLE, SBP 120-140S, MAP>65. EDEMA PRESENT. AFEBRILE. 2 UNITS OF PRBC INFUSED TODAY, LAST HGB OF 7.9, H &H EVERY 8 HOURS. PATIENT WEANED TO 1 L NASAL CANNULA, SATS LOWER TO MID 90S. SPONT COUGH, NON PRODUCTIVE. INSENTIVE SPIROMETER EDUCATION PROVIDED TO PATIENT, IS UTILIZED EVERY HOUR WHILE AWAKE WITH REMINDERS. BOWEL SOUNDS PRESENT, DECREASE IN APETITE NOTED, NO BM TODAY. ABDOMEN FIRM AND DISTENDED. PATIENT RECIEVED 3 HOURS OF DIALYSIS TODAY, 1 L REMOVED. R) FEMORAL V. DIALYSIS LINE PLACED BY DR MRAROQUIN AT BEDSIDE. NO NEW SKIN ISSUES NOTED. BATCH COMPLETED THIS SHIFT. ALL DRESSINGS CHANGED BY WOC RN TODAY. FOLLOW UP: CONTINUE TO MONITOR, DIALYSIS AGAIN IN AM
[2016-07-15 17:24] LABS: HEMATOCRIT 23.1 % (37.0-53.0); HEMOGLOBIN 7.4 g/dL (11.0-16.0)
--- NOTE | 2016-07-15 17:26 | NUR ---
Introduced self and role of care management to pt. He lives in [place] by himself in a handicapped apartment. He states he uses his own walker but also has a cane he uses in the house. The apartment has a walk in shower, he does his own cooking and cleaning he hires out twice a month. He states at this time he most likely would like to go back [facility] [place] [facility] because his kids are busy and won't be able to help much. He see's [facility] the PA down there and he does have 2 sons in the area. I explained will follow and work on this when he is ready.
[2016-07-16 02:35] LABS: HEMATOCRIT 21.4 % (37.0-53.0)
[2016-07-16 02:38] LABS: HEMOGLOBIN 6.7 g/dL (11.0-16.0)
[2016-07-16 05:35] LABS: ALBUMIN 2.4 gm/dL (3.5-5.0)
[2016-07-16 05:39] LABS: BASOPHIL % 0.7 %; EOSINOPHIL # 0.1 K/uL (0.0-0.5); EOSINOPHIL % 2.5 %; HEMATOCRIT 20.1 % (37.0-53.0); IMMATURE GRANULOCYTE # 0.1 K/uL (0.0-0.3); IMMATURE GRANULOCYTE % 1.1 %; LYMPHOCYTE # 0.8 K/uL (0.8-4.0); LYMPHOCYTE % 18.9 %; MCV 97.1 fl (83.0-98.0); MONOCYTE # 0.5 K/uL (0.0-1.0); MONOCYTE % 11.9 %; MPV 9.6 fl (9.4-12.4); NEUTROPHIL # (ANC) 2.8 K/uL (1.4-9.0); NEUTROPHIL % 64.9 %; NRBC % 0 /100WBC (0-0.00); RBC 2.07 M/uL (3.50-5.50); RDW-CV 18.8 % (11.9-14.6); WBC 4.4 K/uL (4.0-11.0)
[2016-07-16 05:40] LABS: HEMOGLOBIN 6.3 g/dL (11.0-16.0); MCH 30.4 pg (27.0-34.0); MCHC 31.3 gm/dL (32.0-36.5); PLATELET COUNT 110 K/uL (150-450)
[2016-07-16 05:42] LABS: ANION GAP 14.3 (10.0-19.0); CREATININE 4.6 mg/dL (0.6-1.3); POTASSIUM 4.3 mMol/L (3.7-5.1)
--- NOTE | 2016-07-16 05:54 | NUR ---
Significant Event: A/O. VSS. UP TO 2L O2 THIS AM WHILE SLEEPING. LUNG SOUNDS SLIGHTLY COARSE AT BEGINNING OF NIGHT, MORE CLEAR/DIM TOWARD AM. NO BM OVERNIGHT. TOLERATED PO INTAKE. LOW UOP OVERNIGHT. DR. MOREJON NOTIFIED. REFUSED TURNS MOST OF NIGHT. C/O PAIN IN BACK/KNEES. GAVE MORPHINE 1MG X3 WITH RELIEF. HGB DOWN TO 6.3 THIS AM. ORDER TO GIVE 2 UNTIS PRBC'S. Follow up: HD TODAY. WILL GIVE 2 UNITS PRBC'S.
--- NOTE | 2016-07-16 16:43 | NUR ---
Significant Event:Patient A&O x 3, remains in bed d/t Rt femoral dialysis catheter in place, in SR, on 2L NC, c/o of pain - morphine given x 2, percocet reordered, refuses to turn side to side at times except for assessments, good appetite, tai with 290mls cloudy UOP, d/c'd Rocephin and Zyvox d/t sensitivity and starting on Levaquin, pt very pleasant and cooperative most of the time, went to hemodialysis at 1435 Follow up:Continue to monitor for any changes
[2016-07-16 18:28] LABS: BASOPHIL % 0.2 %; EOSINOPHIL # 0.1 K/uL (0.0-0.5); EOSINOPHIL % 2.1 %; IMMATURE GRANULOCYTE # 0.1 K/uL (0.0-0.3); IMMATURE GRANULOCYTE % 1.6 %; LYMPHOCYTE # 0.7 K/uL (0.8-4.0); LYMPHOCYTE % 15.6 %; MCHC 32.1 gm/dL (32.0-36.5); MCV 95.9 fl (83.0-98.0); MONOCYTE # 0.5 K/uL (0.0-1.0); MONOCYTE % 11.2 %; MPV 9.9 fl (9.4-12.4); NEUTROPHIL % 69.3 %; NRBC % 0 /100WBC (0-0.00); RDW-CV 17.2 % (11.9-14.6); WBC 4.4 K/uL (4.0-11.0)
[2016-07-16 18:56] LABS: MCH 30.8 pg (27.0-34.0); PLATELET COUNT 127 K/uL (150-450); RBC 2.92 M/uL (3.50-5.50)
[2016-07-17 00:08] LABS: HEMATOCRIT 23.8 % (37.0-53.0)
[2016-07-17 00:10] LABS: HEMOGLOBIN 7.7 g/dL (11.0-16.0)
[2016-07-17 05:34] LABS: ALBUMIN 2.4 gm/dL (3.5-5.0); PHOSPHORUS 4.1 mg/dL (2.5-4.9)
[2016-07-17 05:40] LABS: CALCIUM 7.1 mg/dL (8.5-10.5); CREATININE 4.3 mg/dL (0.6-1.3)
[2016-07-17 05:44] LABS: HEMATOCRIT 23.8 % (37.0-53.0)
[2016-07-17 05:51] LABS: HEMOGLOBIN 7.5 g/dL (11.0-16.0)
--- NOTE | 2016-07-17 06:48 | NUR ---
Significant Event: Patient alert and oriented. VSS on 2L oxygen. Percocet given x2 with relief noted. Femoral line positional but able to pull labs. Repositioned as patient would allow. Pleasant and cooperative with cares. Follow up: continue to monitor
--- NOTE | 2016-07-17 17:28 | NUR ---
Significant Event: A/O x3, cooperative with cares. VSS, SBPs 140-160s, HRs 80s, oxygen at 1 liter. 1 tab of percocet given at 1715 for c/o pain. Dialysis today, 1 liter removed. Dialysis line to R) femoral removed in dialysis; area is soft, non-tender; oozing on gauze outlined. CT abd/pelvis today for reevalation of R) renal hemorrhage; no report as of this time. Ileoconduit to lower R) abd; dressing changed today d/t leakage. 450 ml of cloudy foul smelling urine out. Follow up: tunnled dialysis catheter placement by radiology on Tuesday if still needed; consents not signed; H/H every 12 hrs, 0500 et 1700
[2016-07-17 17:43] LABS: HEMATOCRIT 26.1 % (37.0-53.0); HEMOGLOBIN 8.4 g/dL (11.0-16.0)
--- NOTE | 2016-07-18 04:13 | NUR ---
Significant Event:pt aaox3. pleasan with staff and cares. vss. o2 up to 2l per nasal cannula due to dropping when patien sleeps. dressing to right groin from line removal was changed. is clean dry intact. pt has 250 out of urine. last pain pill given at 2129, has slept well since. reposistioned as pt would allow. lung sound clear/diminished. bowel sound present however no bm this shift. uses call light approp. Follow up:
[2016-07-18 06:24] LABS: BASOPHIL % 0.7 %; EOSINOPHIL # 0.1 K/uL (0.0-0.5); EOSINOPHIL % 3.4 %; HEMATOCRIT 26.2 % (37.0-53.0); HEMOGLOBIN 8.1 g/dL (11.0-16.0); IMMATURE GRANULOCYTE # 0.2 K/uL (0.0-0.3); IMMATURE GRANULOCYTE % 3.9 %; LYMPHOCYTE # 0.7 K/uL (0.8-4.0); LYMPHOCYTE % 18.1 %; MCH 30.6 pg (27.0-34.0); MCHC 30.9 gm/dL (32.0-36.5); MCV 98.9 fl (83.0-98.0); MONOCYTE # 0.5 K/uL (0.0-1.0); MONOCYTE % 12.5 %; MPV 9.2 fl (9.4-12.4); NEUTROPHIL # (ANC) 2.5 K/uL (1.4-9.0); NEUTROPHIL % 61.4 %; NRBC % 0 /100WBC (0-0.00); PLATELET COUNT 110 K/uL (150-450); RBC 2.65 M/uL (3.50-5.50); RDW-CV 16.6 % (11.9-14.6); WBC 4.1 K/uL (4.0-11.0)
[2016-07-18 06:38] LABS: ANION GAP 11.2 (10.0-19.0); CALCIUM 7.6 mg/dL (8.5-10.5); MAGNESIUM 2.2 mg/dL (1.8-2.6); POTASSIUM 4.2 mMol/L (3.7-5.1)
[2016-07-18 06:39] LABS: CREATININE 4.3 mg/dL (0.6-1.3)
[2016-07-18 17:12] LABS: HEMATOCRIT 25.9 % (37.0-53.0); HEMOGLOBIN 8.2 g/dL (11.0-16.0)
--- NOTE | 2016-07-18 18:57 | NUR ---
Significant Event: A/O x3, cooperative with cares. VSS, SBPs 110-140s, HRs 80-90s, oxygen at 2 liters. 1 tab of [employer] given x2, last at 1536, for c/o R) back/abd pain; relief noted. PT/OT ordered; up to chair with 2-3 asssist. Last Hgb 8.2; H/H daily now. Follow up: NPO after midnight for possible tunneled dialysis catheter placement by radiology tomorrow
--- NOTE | 2016-07-19 03:32 | NUR ---
Significant Event:pt aaox3. pleasan with staff and cares. denies pain when asked. pt request to sleep in recliner. lung sounds clear/diminished. sob with activity. bowel sounds active. no bm this shift. pt uses call light approp. up with 2 assist gb walker. o2 per nasal cannula at 2l. illeostomy patent with yellow urine. some sediment noted. pt npo since midnight. vss. dressing to right groin c/d/i. iv to left forearm sl. Follow up:
[2016-07-19 03:51] LABS: HEMATOCRIT 25.9 % (37.0-53.0); HEMOGLOBIN 8.3 g/dL (11.0-16.0)
[2016-07-19 04:02] LABS: ANION GAP 14.3 (10.0-19.0); POTASSIUM 4.3 mMol/L (3.7-5.1)
[2016-07-19 04:04] LABS: CREATININE 4.8 mg/dL (0.6-1.3)
--- NOTE | 2016-07-19 09:44 | NUR ---
PT SCREENED D/T LOS. EST NEEDS: [id number] KCALS, 96-115 GM PROTEIN, 1 ML/KCAL FLUIDS. INTAKE 75-100%. NO NUTRITION-RELATED DX IDENTIFIED. WILL ASSIST NEEDED.
--- NOTE | 2016-07-19 17:18 | NUR ---
Significant Event: A/O x3, cooperative with cares. VSS, SBPs 130-150s, HRs 80-90s, oxygen at 2 liters. 1 tab of [place] given at 0806 for c/o R) back/abd pain; relief noted. Line not placed by radiology today; Dr. Menon notified. Modified ultrasound of the neck today, no report as of this time. 700 ml from ileoconduit this shift. Worked with PT/OT this afternoon; up to chair with assist of 1 et walker. Follow up: plan is for patient to possibly have a line placed by the interventional radiologist on Tuesday
[2016-07-20 03:25] LABS: HEMATOCRIT 25.3 % (37.0-53.0)
[2016-07-20 03:31] LABS: ALBUMIN 2.4 gm/dL (3.5-5.0); ANION GAP 13.2 (10.0-19.0); CALCIUM 8.4 mg/dL (8.5-10.5); PHOSPHORUS 5.1 mg/dL (2.5-4.9); POTASSIUM 4.2 mMol/L (3.7-5.1)
[2016-07-20 03:39] LABS: CREATININE 5.2 mg/dL (0.6-1.3)
--- NOTE | 2016-07-20 05:30 | NUR ---
A&O. Cooperative. Admitted for high INR from [place]- Found a right kidney hemorrhage. Recent renal CT shows hemorrhage has stabilized. PT/OT refused in am yesterday- worked with them in the afternoon. ! assist with gait belt and walker. Paced- AICD. 2 ltrs O2. IV left FA SL. Ileostomy patent. Tunneled dialysis line placement was cancelled yesterday- will be placed Tuesday if dialysis needed. Abrasions on face, skin tears to CURT. [place] Q6H PRN.
--- NOTE | 2016-07-20 14:34 | NUR ---
Social visit with pt today. He states he is doing better and did walk the halls. He stated it sounds like the plan is to place a dialysis catheter and go from there. HE is unsure if the dialysis will be permanent or not. He states he most likely will need swingbed back in [place] but I did explain if dialysis is needed may need to be in [facility] and he is aware with this and is ok with it as well but he also stated his son can also transport to dialysis if needed. I did notify Jorge Luis at [facility] and placed on the list with Keerthi and faxed some information. I stated it is unsure if he will need dialysis or not and that plays a factor on dialysis.
--- NOTE | 2016-07-20 19:38 | NUR ---
Significant Event: A/O x3, cooperative with cares. VSS, SBPs 120-130s, HRs 80-90s, oxygen at 1 liter. Percocet given at 0837 for c/o pain; relief noted. UP with assist of 1 et lizzy. Plan is to have a lasix run off test with nuclear med at 0800 tomorrow et then to have a tunneled dialysis line placed in IR at 1300. Unsure if will have dialysis afterwards or not Follow up: NPO after midnight
[2016-07-21 03:54] LABS: HEMATOCRIT 25.5 % (37.0-53.0); HEMOGLOBIN 8.4 g/dL (11.0-16.0)
--- NOTE | 2016-07-21 05:32 | NUR ---
Significant Event: STOOD AT BEDSIDE X1 WITH 2 ASSIST. VERY WEAK. NPO AFTER MIDNIGHT. NOTHING GIVEN FOR PAIN. REMAINS ON 1L O2. UO 1100 OVERNIGHT. Follow up:
[2016-07-21 08:01] LABS: ALBUMIN 2.5 gm/dL (3.5-5.0); ANION GAP 12.4 (10.0-19.0); CALCIUM 8.3 mg/dL (8.5-10.5); PHOSPHORUS 4.6 mg/dL (2.5-4.9); POTASSIUM 4.4 mMol/L (3.7-5.1)
[2016-07-21 08:06] LABS: CREATININE 5.2 mg/dL (0.6-1.3)
--- NOTE | 2016-07-21 16:30 | NUR ---
Significant Event: A/Ox3. [id number]. P-90s. Afebrile. RA-2L NC with saturations in the low to mid 90s. L) FA saline locked. SR wih PVCs. Illioconduit draining yellow urine with white sediment, 1500ml/shift. Patient was off floor for lasix clearance this AM and was off the floor for a dyalysis cath placement this afternoon. Attempt in radiology for dyalysis catheter was unsucessful. Vascular consulted. acuseal graft to be placed tomorrow. NPO after midnight. Up with 1A/walker.
--- NOTE | 2016-07-22 03:01 | NUR ---
Significant Event:Pt aaox3. pleasant with all staff and cares. up with 1 assist. lung sound clear/dimished. 2l o2 per nasal cannula. denies sob. pt skin very dry and fragile. tears easily. iv to right forearm sl. vss. denies pain when asked. dressing to right jugular c/d/i. ileostomy patent with clear yellow output. pt npo since midnight for possible acuseal graft. uses call light approp. Follow up:
[2016-07-22 06:23] LABS: HEMATOCRIT 24.7 % (37.0-53.0)
[2016-07-22 06:27] LABS: HEMOGLOBIN 7.9 g/dL (11.0-16.0)
[2016-07-22 08:48] LABS: ALBUMIN 2.5 gm/dL (3.5-5.0); ANION GAP 14.3 (10.0-19.0); CALCIUM 8.3 mg/dL (8.5-10.5); PHOSPHORUS 5.6 mg/dL (2.5-4.9); POTASSIUM 4.3 mMol/L (3.7-5.1)
[2016-07-22 08:51] LABS: CREATININE 5.4 mg/dL (0.6-1.3)
[2016-07-22 10:12] LABS: CPK 34 IU/L (35-332); MAGNESIUM 2.3 mg/dL (1.8-2.6)
--- NOTE | 2016-07-22 19:06 | NUR ---
Significant Event: A/Ox3. [id number]. P-80s. Afebrile. 2L currently with saturations in the mid 90s. L) FA IV TKO. R) acuseal graft done today in surgery. Patient ok to have dyalysis tomorrow am. ilioconduit had 1250ml out per shift. Naselle 2 tab last given at 1530. Up with 1A/walker. Pleasant and cooperative with cares.
[2016-07-23 03:59] LABS: HEMOGLOBIN 7.8 g/dL (11.0-16.0)
[2016-07-23 04:15] LABS: ALBUMIN 2.5 gm/dL (3.5-5.0); ANION GAP 16.8 (10.0-19.0); CALCIUM 8.2 mg/dL (8.5-10.5); PHOSPHORUS 6.8 mg/dL (2.5-4.9); POTASSIUM 4.8 mMol/L (3.7-5.1)
[2016-07-23 04:16] LABS: CREATININE 5.6 mg/dL (0.6-1.3)
--- NOTE | 2016-07-23 05:46 | NUR ---
Significant events: Pt A/Ox3. VSS. [place] and percocet for pain. Up 1PA. Good urine output from catheter. R) upper arm acuseal graft site CDI, small amount of shadow drainage. To go to dialysis today. IV antibiotics continue. Slept most of shift. Turned frequently.
--- NOTE | 2016-07-23 15:49 | NUR ---
I got a call at [address] Menon states pt is chronic hemodialysis and sent the paperwork to [facility]. I then called Tala at [facility] and if family is able to transport to dialysis. She thinks it could be ok but the transportation will be the issue and she will talk with someone on Tuesday and for us to fax the information as well. Will wait till we get a chair time before we talk with sons and if we need to continue referral to [facility].
--- NOTE | 2016-07-23 17:31 | NUR ---
Significant Event : PT IN DIALYSIS TODAY FOR ALMOST 5 HOURS. CAME BACK ABOUT 1430, IV WAS LOST IN ROUTE, NEW IV STARTED TO LT AC. Follow up:
--- NOTE | 2016-07-23 18:47 | NUR ---
174 doppled both radial pulses. THE RIGHT ONE WAS STRONG, THE LEFT ONE WAS THREADY BUT IT DID DOPPLE. BOTH HANDS WERE SLIGHTLY COOL, THE RIGHT SLIGHTLY MORE SWOLLEN THAN THE LT.
[2016-07-24 03:59] LABS: BASOPHIL % 0.5 %; EOSINOPHIL # 0.1 K/uL (0.0-0.5); EOSINOPHIL % 0.8 %; HEMATOCRIT 25.9 % (37.0-53.0); IMMATURE GRANULOCYTE # 0.3 K/uL (0.0-0.3); IMMATURE GRANULOCYTE % 4.7 %; LYMPHOCYTE # 0.7 K/uL (0.8-4.0); LYMPHOCYTE % 11.3 %; MCH 30.1 pg (27.0-34.0); MCHC 30.9 gm/dL (32.0-36.5); MCV 97.4 fl (83.0-98.0); MONOCYTE # 0.7 K/uL (0.0-1.0); MONOCYTE % 11.4 %; NEUTROPHIL # (ANC) 4.2 K/uL (1.4-9.0); NEUTROPHIL % 71.3 %; NRBC % 0 /100WBC (0-0.00); PLATELET COUNT 335 K/uL (150-450); RBC 2.66 M/uL (3.50-5.50); RDW-CV 15.2 % (11.9-14.6)
[2016-07-24 04:11] LABS: ALBUMIN 2.6 gm/dL (3.5-5.0); PHOSPHORUS 5.2 mg/dL (2.5-4.9)
[2016-07-24 04:12] LABS: ANION GAP 12.3 (10.0-19.0); CREATININE 4.1 mg/dL (0.6-1.3); POTASSIUM 4.3 mMol/L (3.7-5.1)
--- NOTE | 2016-07-24 05:08 | NUR ---
Significant Event: Pt A&Ox3. Does have Lt eye droop. On 07/23 placed CURT HD graft--did krzysztof with 'X' where bruit and thrill is. MD ordered doppler of radial pulses qday. Vital signs stable, 2-3L nc. Does become very dyspneic and sats drop to low 80's and 70's when talking. Had dialysis 07/23, only 300ml pulled off. Generalized edema. PIV in LFA, SL; int clinda. No c/o pain. Has ilioconduit. Abd remains firm upon palpitation. Follow up: Continue plan of care.
--- NOTE | 2016-07-24 16:06 | NUR ---
Significnat event: A/O x 3. On 1L NC with sats in the mid 90's. Physical therapy worked with patient once today, He does well with [address] Has asked that we doppler radial pulses qday both were done this am and both were audible. Gave 1 [place] this morning with relief noted. Has refused both meals today.
[2016-07-25 03:35] LABS: HEMATOCRIT 25.9 % (37.0-53.0); HEMOGLOBIN 8.1 g/dL (11.0-16.0); MCH 30.6 pg (27.0-34.0); MCHC 31.3 gm/dL (32.0-36.5); MCV 97.7 fl (83.0-98.0); MPV 8.4 fl (9.4-12.4); PLATELET COUNT 275 K/uL (150-450); RBC 2.65 M/uL (3.50-5.50); RDW-CV 15.6 % (11.9-14.6); WBC 5.8 K/uL (4.0-11.0)
[2016-07-25 03:51] LABS: ALBUMIN 2.6 gm/dL (3.5-5.0); CALCIUM 8.4 mg/dL (8.5-10.5); MAGNESIUM 2.2 mg/dL (1.8-2.6); PHOSPHORUS 5.4 mg/dL (2.5-4.9)
[2016-07-25 03:52] LABS: CREATININE 4.5 mg/dL (0.6-1.3)
--- NOTE | 2016-07-25 04:14 | NUR ---
Significant Event: Patient alert and oriented x3. SBP 106-140. All other vital signs stable. On 1-2L O2. Patient has periods of sleep apnea. Radial pulses palpated. Bruit and thrill noted to right upper arm HD graft. Generalized edema continues. Patient refused all meals. Abdomen is firm. No complaints of pain. Ileoconduit patent with 400ml uop. Left forearm PIV saline locked. Refused respiratory therapy. Patient very tired. Slept most of the shift. Calm and cooperative with all cares. Follow up: Will continue to monitor per plan of care.
[2016-07-25 04:18] LABS: ABSOLUTE NEUTROPHIL CT (ANC) 4.2 K/uL (1.4-9.0); BANDED NEUTROPHIL # 0.3 K/uL (0.0-0.1); BANDED NEUTROPHILS % 6 %; LYMPHOCYTE % 17 %; MONOCYTE # 0.2 K/uL (0.0-1.0); SEGMENTED NEUTROPHIL # 3.8 K/uL (1.4-9.0); SEGMENTED NEUTROPHIL % 66 %
--- NOTE | 2016-07-25 16:35 | NUR ---
Significant Event: UNEVENTFUL DAY. UP WITH PT AND WORKED WITH OT THIS AM. AMBULATES X3 TO THE BR WITH ASSIST OF ONE AND WALKER/GAIT BELT. MODERATE BM. NO CHANGES IN ASSESSMENTS. PT DID GET SOME BAD NEWS ABOUT HIS BROTHER THIS AM, BUT HANDLED IT WELL, WAS ABLE TO TALK TO SON AT LENGTH ABOUT IT. PAIN MEDS X2, WITH GOOD RELIEF. Follow up: WORKING ON SWING BED POST DC FROM HOSPITAL.
[2016-07-26 04:05] LABS: HEMATOCRIT 26.3 % (37.0-53.0); HEMOGLOBIN 8.2 g/dL (11.0-16.0); MCH 30.4 pg (27.0-34.0); MCHC 31.2 gm/dL (32.0-36.5); MCV 97.4 fl (83.0-98.0); PLATELET COUNT 314 K/uL (150-450); RDW-CV 15.7 % (11.9-14.6); WBC 6.3 K/uL (4.0-11.0)
[2016-07-26 04:18] LABS: ALBUMIN 2.6 gm/dL (3.5-5.0); ANION GAP 16.1 (10.0-19.0); CALCIUM 8.3 mg/dL (8.5-10.5); MAGNESIUM 2.2 mg/dL (1.8-2.6); PHOSPHORUS 5.3 mg/dL (2.5-4.9); POTASSIUM 4.1 mMol/L (3.7-5.1)
[2016-07-26 04:19] LABS: CREATININE 4.9 mg/dL (0.6-1.3)
[2016-07-26 04:40] LABS: ABSOLUTE NEUTROPHIL CT (ANC) 4.9 K/uL (1.4-9.0); BANDED NEUTROPHIL # 0.5 K/uL (0.0-0.1); BANDED NEUTROPHILS % 8 %; LYMPHOCYTE # 0.8 K/uL (0.8-4.0); LYMPHOCYTE % 13 %; MONOCYTE # 0.3 K/uL (0.0-1.0); SEGMENTED NEUTROPHIL # 4.4 K/uL (1.4-9.0); SEGMENTED NEUTROPHIL % 69 %
--- NOTE | 2016-07-26 07:00 | NUR ---
Significant Event: Patient alert and oriented x3. SBP 90s-120s. All other vital signs stable. On 2L O2 when sleeping for periods of sleep apnea. Radial pulses palpated. Bruit and thrill heard to right upper arm HD graft. Generalized edema continues. Abdomen continues to be firm. Colace given x1 with no results. Ileoconduit patent with 550ml uop. Up with 1 assist, walker, and gaitbelt. Calm and coopertive with all cares. Follow up: Working on swing bed placement
--- NOTE | 2016-07-26 13:42 | NUR ---
Called June in Dialysis, they have not heard a chair time yet at [facility]. Called [facility] in [place], they have not received information on patient yet. Called [facility], they can't find a referral was made. Called June back, they sent referral on 07/23, she will resend information today to [facility], she confirmed only one dialysis unit in [place] and that is [facility].
--- NOTE | 2016-07-26 14:32 | NUR ---
A - NUT F/U. DIALYSIS. MWF. ABD FIRM. 2+ EDEMA. LABS: GLU 115, BUN/CR 61/4.9, ALB 2.6, PHOS 5.3, HGB/HCT 8.2/26.3. MEDS: MACROBID, IVF, BOWEL/NAUSEA, PROTONIX. DIET: RENAL. INTAKE: REF x 4, 50% x 1, 100% x 4. NEEDS (RECALCULATED BASED ON DIALYSIS): [id number] KCAL (30-35 KCAL/KG IBW), 107-125 G PRO (1.2-1.4 G/KG IBW). D - INADEQUATE NUTRIENT INTAKE AT TIMES R/T DECREASED APPETITE AEB INTAKE RECORD. I - GOAL FOR INTAKE TO MEET 50-100% BY NEXT ASSESSMENT. WILL ADD ENSURE @ L&D. M/E - WILL MONITOR INTAKE F/U IN 3-5 DAYS.
--- NOTE | 2016-07-26 17:17 | NUR ---
Significant Event: A/Ox3. [id number]. P-80-100s. Afebrile. Weaned to room air with saturation in the low to mid 90s. L) FA IV saline locked. Patient had 375ml out of ilioconduit today. 2L taken off in dyalysis. Percocet given x2 for pain in lower back. Zofran given x1 for nausea. BMx1 this shift. Up with SBA walker. [facility].
--- NOTE | 2016-07-27 05:25 | NUR ---
Significant event: A/O x 3. Up with SBA. Had some N/V this shift gave zofran x 2 with some relief noted. There was an order written to change dressing on his right ac area, patient was nervous about messing with it and requested we did not mess with it stating it took them too long to put it in and he did'nt want anyone messing it up. percocet given x 2.
[2016-07-27 05:58] LABS: HEMATOCRIT 27.6 % (37.0-53.0); HEMOGLOBIN 8.5 g/dL (11.0-16.0); MCH 30.2 pg (27.0-34.0); MCHC 30.8 gm/dL (32.0-36.5); MCV 98.2 fl (83.0-98.0); MPV 9.3 fl (9.4-12.4); PLATELET COUNT 337 K/uL (150-450); RBC 2.81 M/uL (3.50-5.50); RDW-CV 15.9 % (11.9-14.6); WBC 8.8 K/uL (4.0-11.0)
[2016-07-27 06:10] LABS: ANION GAP 15.7 (10.0-19.0); CALCIUM 8.8 mg/dL (8.5-10.5); MAGNESIUM 2.3 mg/dL (1.8-2.6); PHOSPHORUS 3.9 mg/dL (2.5-4.9); POTASSIUM 4.7 mMol/L (3.7-5.1)
[2016-07-27 06:11] LABS: CREATININE 4.2 mg/dL (0.6-1.3)
[2016-07-27 06:32] LABS: ABSOLUTE NEUTROPHIL CT (ANC) 7.6 K/uL (1.4-9.0); BANDED NEUTROPHIL # 0.4 K/uL (0.0-0.1); BANDED NEUTROPHILS % 4 %; LYMPHOCYTE # 0.7 K/uL (0.8-4.0); LYMPHOCYTE % 8 %; MONOCYTE # 0.4 K/uL (0.0-1.0); SEGMENTED NEUTROPHIL # 7.2 K/uL (1.4-9.0); SEGMENTED NEUTROPHIL % 82 %
--- NOTE | 2016-07-27 12:03 | NUR ---
I spoke with Deborah with [facility] and she states waiting on [facility] to give a chair time. I did fax updated information she needed to [phone] and phone is [phone]. I then spoke with pt and discussed dc plans. He states he is getting closer to going home but is ok to swingbed or skilled stay at [facility] for a short time. I asked if his sons could transport and now he stated he does not want to bother them but can hire someone or get the [employer] bus down there. I did tell him that will take some prep time and not sure they will do that for dialysis but will inquire. He stated he is ok with [facility] as well. I did call Tala and she states probably not on the transportation but I will need to talk with [facility] [phone] when I know a chair time because Tala would like to take pt but wants to make sure everything is set up to make it happen. I did fax them the referral. I called Keerthi at [facility] and she will look into it and I faxed updated information as well. Will update both when I know a chair time.
--- NOTE | 2016-07-27 15:24 | NUR ---
I did call [facility] and let them know that per Deborah pt can start tomorrow at 1050 on but on Tuesday will give a more permanent time. I told Deborah I needed a more definate time due to working with the [facility]. I then call Keerthi at [facility] and told her the tent time.
--- NOTE | 2016-07-27 17:00 | NUR ---
Significant Event: A/Ox3. VSS on room air. L) FA IV slaine locked. Iliostomy had 150ml/shift. Colace given x2 and mirilax given x1 for constipation. Zofran and phenegran given x1 for N/V. Last dose of zofran was at 1159. Up with 1A/Walker. L) ACC amd L) armpit incisions dressing changed to gauze and tagaderm, to be changed PRN. Patient has placement in [facility] and a dyalysis chair. Goal discharge is .
[2016-07-28 03:42] LABS: HEMATOCRIT 25.7 % (37.0-53.0); HEMOGLOBIN 7.8 g/dL (11.0-16.0); MCH 30.4 pg (27.0-34.0); MCHC 30.4 gm/dL (32.0-36.5); MPV 9.2 fl (9.4-12.4); RBC 2.57 M/uL (3.50-5.50); RDW-CV 16.1 % (11.9-14.6); WBC 6.9 K/uL (4.0-11.0)
[2016-07-28 03:43] LABS: PLATELET COUNT 267 K/uL (150-450)
[2016-07-28 03:58] LABS: ALBUMIN 2.7 gm/dL (3.5-5.0); ANION GAP 14.3 (10.0-19.0); CALCIUM 8.1 mg/dL (8.5-10.5); MAGNESIUM 2.1 mg/dL (1.8-2.6); POTASSIUM 4.3 mMol/L (3.7-5.1)
[2016-07-28 04:03] LABS: CREATININE 5.3 mg/dL (0.6-1.3)
--- NOTE | 2016-07-28 05:08 | NUR ---
Significant Event: PATIENT IS A/O X3. VSS. HR 70-80'S. SBP 90-110'S. AFEBRILE. 02 SATS IN LOW TO MID 90'S ON RA. C/O PAIN TO RIGHT FLANK AND C/O GAS PAINS. 1 TAB [place] GIVEN X1. LUNGS CLEAR/DIM TO DIM. UP WITH 1A WITH WALKER/GB. C/O CONSTIPATION, ON/OFF NAUSEA, AND INDIGESTION. TUMS GIVEN X1. REQUEST TO PREMEDICATE WITH ZOFRAN BEFORE EATING. ILEOSTOMY TO UROMETER DRAINAGE BAG. 75ML YELLOW CLOUDY DRAINAGE. PHYISCIAN AWARE. CONTINUES TO BE ON M/W/F HEMODIALYSIS TO RIGHT UPPER ARM ACCUSEAL GRAFT. SITES HAVE DRESSING C/D/I AND DRESSING TO ARMPIT IS C/D/I. IV TO LEFT FOREARM SL. CONTINUES TO HAVE 1-2+ GENERALIZED EDEMA. Follow up: DIALYSIS PLANNED FOR AM.
[2016-07-28 06:25] LABS: ABSOLUTE NEUTROPHIL CT (ANC) 4.8 K/uL (1.4-9.0); BANDED NEUTROPHIL # 0.3 K/uL (0.0-0.1); BANDED NEUTROPHILS % 4 %; LYMPHOCYTE # 1.2 K/uL (0.8-4.0); LYMPHOCYTE % 17 %; MONOCYTE # 0.6 K/uL (0.0-1.0); SEGMENTED NEUTROPHIL # 4.6 K/uL (1.4-9.0); SEGMENTED NEUTROPHIL % 66 %
--- NOTE | 2016-07-28 11:57 | NUR ---
I got a call from Tala at the swingbed stating the son stated they would not accept and also no transportation. I explained I have never spoke to son and that is not what I told the pt. I explained we will work on the swingbed but we need to make sure the transportation will work or will need to look at [place] and the pt agreed because he did not want to bother his children. I explained to Tala I am still waiting on chair times due to the need to confirm transportation if they public one there will be able to do it or not. I explained I will call her back once I know. She stated [facility] will accept if the transportation works. I did try calling son but the numbers were not correct so I did call down to dialysis and updated Keri on this and she was going to make sure the pt again understood this and that the information he was giving the son was not true. I did call [facility] and they will let me know after 1200 a chair time due to all nurses are currently busy with no down time.
--- NOTE | 2016-07-28 14:22 | NUR ---
I spoke with Keerthi around 1230 from [facility] and she stated Tuesday will need to be there by 0950 then after that m-w-f at 1100. I explained working on either the [employer] or [facility]. I then left a couple vm with Angelica with the [facility] transportation and as well and Tala with the [employer]. I also spoke and updated Coretta at [facility]. Waiting for an accepting facility. Multiple attempts to call son and the number give does not work and Loyall gave me the numbe and it as well not a working number.
--- NOTE | 2016-07-28 15:50 | NUR ---
I did speak with Angelica with the public transportation today and they will be able to help pt out. They will be able to take him on Tuesday and pick him up and then put him on a schedule for the 1100 dialysis in [facility]. She stated she will talk with [facility] but they would like help from the family if able one day a week but will also see if that works and also will need family on emergency basis as well and can not transport on . Angelica stated they will put him on the list for a month. I then spoke with pt and son on the phone regarding what i had done and working with the swingbed and [place] but waiting to see if the transportation will work out and they are needing assistance from the family. [facility]io stated he will be able to help and I encouraged him to talk with Angelica and that pt will be dismissed tomorrow and he can come get him to take him to the swingbed and he agreed. I did update nursing and called Ca SUTTON and also Dr Hart. I also updated Jacklyn at [facility] in [facility] as well where pt will be going and will be there on Tuesday.
--- NOTE | 2016-07-28 15:56 | NUR ---
I updated Dr Hart [phone] and nurse to nurse [phone].
--- NOTE | 2016-07-28 15:57 | NUR ---
Son number is [phone].
--- NOTE | 2016-07-28 17:18 | NUR ---
Significant Event: VSS ON RA. 1 TAB NORCO GIVEN THIS AFTERNOON FOR RIGHT FLANK PAIN WITH RELIEF NOTED. UP TO BATHROOM SBA WITH BM X3 TODAY, PATIENT REPORTS XLG. ILEOSTOMY SITE COVERED WITH 200ML UOP. RIGHT UPPER ARM GRAFT COVERED WITH DRESSING C/D/I. PIV TO L) FA SL'D. Follow up: PLAN FOR DC TO [facility] TOMORROW WITH CHAIR TIME IN [place] FOR TUESDAY. MONITOR UOP AND PAIN CONTROL. VITALS PER FLOOR.
[2016-07-28 22:59] LABS: ANION GAP 12.1 (10.0-19.0); CALCIUM 8.2 mg/dL (8.5-10.5); CREATININE 3.3 mg/dL (0.6-1.3); POTASSIUM 5.1 mMol/L (3.7-5.1)
--- NOTE | 2016-07-29 04:46 | NUR ---
Significant Event: Patient is alert and oriented x 3. VSS on room air. HRs in the 80s-90s. SBPs in the high 90s-1 teens. Afebrile. Patient had 11 beat run of V tach this shift, MD called. Labs ordered, Coreg dose increased. Up to bathroom with stand by assist and walker. Hemodiaylsis patient on M,W,F. Accuseal graft to right upper arm intact, bruit noted. Zofran given last at 2317 for nausea. Patient had vomitting episode x 1. Ileostomy site on right side of abdomen, 150 mls out this shift. Denies any pain. Left forearm IV, saline locked. Patient is cooperative with cares. Follow up: Dismissal to [facility] today.
[2016-07-29 06:07] LABS: BASOPHIL % 0.3 %; EOSINOPHIL # 0.1 K/uL (0.0-0.5); HEMATOCRIT 29.2 % (37.0-53.0); HEMOGLOBIN 8.9 g/dL (11.0-16.0); IMMATURE GRANULOCYTE # 0.4 K/uL (0.0-0.3); LYMPHOCYTE # 0.6 K/uL (0.8-4.0); MCH 30.4 pg (27.0-34.0); MCHC 30.5 gm/dL (32.0-36.5); MCV 99.7 fl (83.0-98.0); MONOCYTE # 0.7 K/uL (0.0-1.0); MONOCYTE % 7.1 %; MPV 9.2 fl (9.4-12.4); NEUTROPHIL # (ANC) 7.5 K/uL (1.4-9.0); NEUTROPHIL % 81.6 %; NRBC % 0 /100WBC (0-0.00); PLATELET COUNT 270 K/uL (150-450); RBC 2.93 M/uL (3.50-5.50); WBC 9.2 K/uL (4.0-11.0)
[2016-07-29 06:18] LABS: ANION GAP 13.3 (10.0-19.0); CALCIUM 8.6 mg/dL (8.5-10.5); CREATININE 3.8 mg/dL (0.6-1.3); MAGNESIUM 2.1 mg/dL (1.8-2.6); PHOSPHORUS 3.3 mg/dL (2.5-4.9); POTASSIUM 5.3 mMol/L (3.7-5.1)
--- NOTE | 2016-07-29 10:30 | NUR ---
I spoke with nursing and Dr Hart around 1030 and she stated [facility] Triana has accepted pt. I then get a call from Tala at the [facility] stating her PA has concerns and is not accepting yet. I explained I just spoke with Dr Hart and thought it was ok. She did give me the concerns about ID (UTI), coumadin and ileus. I then called Ca SUTTON and he updated me on all this so I left a vm with Tala. I then spoke Dr Hart and she stated she called Keerthi back because she was wrong on the uti due to thinking of a different pt and that Keerthi HARDIN then stated she would accept. I then called Tala back and addressed the concerns and that Dr Hart called her back but if she needs to call her back again she can but to find out. I explained we treated his UTI due to ilioconduite and per Dr Colindres does not need suppressive therapy, as for the coumadin Dr Lin will address in [address] scan is done and checking on the renal hemhorrage from fall and the ileus or small bowel per Dr Hart she told the PA there that its sbo/and is back up with stool and medication given and pt having bowel movements. I spoke with pt and he states his son is on the way and I did tell him on Memorial Day his son will need to transport and he states not a problem. I updated nursing and orders were faxed at 1040. Tala called back and we are good to go and will accept pt and also from Keerthi HARDIN.
--- NOTE | 2016-07-29 11:31 | NUR ---
PATIENT ALERT, ORIENTED X4. LUNGS CLEAR/DIM WITH SATS >90% ON RA. LAST VITALS: 140/61-80, 100 HR, 18 RR, 97.6 ORAL TEMP. C/O PAIN TO RIGHT ABD THIS MORNING WITH ZOFRAN GIVEN AND 200ML EMESIS SHORTLY AFTER. ABD XRAY TODAY SHOWED PARTIAL SMALL BOWEL WITH LOTS OF STOOL PRESENT IN BOWELS. MG CITRATE AND FLEETS ENEMA GIVEN WITH XLARGE BM. GAS-X ALSO GIVEN AND PATIENT STATES FEELING BETTER. PIV TO BE REMOVED FROM LEFT AC/FA WITH GAUZE AND COBAN TO BE APPLIED. AMBULATES 1PA WITH WALKER AND GAIT BELT. ILEOSTOMY TO DEPENDENT BAG WITH CLOUDY, OLIGURA UOP. DIALYSIS FISTULA GRAFT TO RIGHT UPPER ARM WITH GAUZE/TAPE AND TEGADERM OVER SUTURES. EXCESSIVE DRY SKIN TO TORSO AND EXTREMITIES. ECCHYMOSIS SCATTERED TO EXTREMITIES. COOPERATIVE WITH CARES. SON TO TRANSPORT TO [facility] TODAY.
--- NOTE | 2016-07-29 14:51 | NUR ---
PATIENT DISMISSED WITH SON VIA PRIVATE CAR TO [facility] AT 1255. TRANSPORT PACKET AND BELONGINGS SENT WITH PATIENT. PIV REMOVED FROM L) AC WITH GAUZE AND COBAN APPLIED. VERBAL REPORT GIVEN TO JOHN KILPATRICK AT [facility] VIA PHONE.
[2016-08-19] MEDS ORDERED: NORCO 5-325 TA1 EACH PO (10:47)
== END 2016-07-29 12:50 | disposition swing bed (61) | DRG 673 ==
LOC: GPCU 12:00 → GICU 12:05 → GPCU 12:05 → GICU 17:28 → GPCU 07-17 05:53
PROVIDERS: Hospitalist; Internal Medicine; Internal Medicine Nephrology; ADMIT Internal Medicine
PROC: 06HY33Z Insertion of Infusion Device into Lower Vein, Percutaneous Approach (ICD-10-PCS; 2016-07-15)
PROC: 5A1D60Z (ICD-10-PCS; 2016-07-15)
PROC: 30233N1 Transfusion of Nonautologous Red Blood Cells into Peripheral Vein, Percutaneous Approach (ICD-10-PCS; 2016-07-15)
PROC: 30233N1 Transfusion of Nonautologous Red Blood Cells into Peripheral Vein, Percutaneous Approach (ICD-10-PCS; 2016-07-16)
PROC: 02HV33Z Insertion of Infusion Device into Superior Vena Cava, Percutaneous Approach (ICD-10-PCS; 2016-07-21)
PROC: B548ZZA Ultrasonography of Superior Vena Cava, Guidance (ICD-10-PCS; 2016-07-21)
PROC: B5181ZA Fluoroscopy of Superior Vena Cava using Low Osmolar Contrast, Guidance (ICD-10-PCS; 2016-07-21)
PROC: 03170JD Bypass Right Brachial Artery to Upper Arm Vein with Synthetic Substitute, Open Approach (ICD-10-PCS; principal; 2016-07-22)
DX: T83.593A Infection and inflammatory reaction due to other urinary stents, initial encounter (principal); R65.20 Severe sepsis without septic shock; J96.01 Acute respiratory failure with hypoxia; N17.9 Acute kidney failure, unspecified; A41.9 Sepsis, unspecified organism; I13.2 Hypertensive heart and chronic kidney disease with heart failure and with stage 5 chronic kidney disease, or end stage renal disease; N18.6 End stage renal disease; S37.091A Other injury of right kidney, initial encounter; N39.0 Urinary tract infection, site not specified; I50.42 Chronic combined systolic (congestive) and diastolic (congestive) heart failure; I42.6 Alcoholic cardiomyopathy; D62 Acute posthemorrhagic anemia; I87.1 Compression of vein; B96.89 Other specified bacterial agents as the cause of diseases classified elsewhere; Z99.2 Dependence on renal dialysis; I48.0 Paroxysmal atrial fibrillation; F10.10 Alcohol abuse, uncomplicated; E66.9 Obesity, unspecified; Z68.33 Body mass index [BMI] 33.0-33.9, adult; K59.00 Constipation, unspecified; R10.13 Epigastric pain; R55 Syncope and collapse; W18.30XA Fall on same level, unspecified, initial encounter; Z87.891 Personal history of nicotine dependence; Z92.3 Personal history of irradiation; Z92.21 Personal history of antineoplastic chemotherapy; Z85.46 Personal history of malignant neoplasm of prostate; Z85.51 Personal history of malignant neoplasm of bladder; Z86.718 Personal history of other venous thrombosis and embolism; Z79.01 Long term (current) use of anticoagulants; Z95.810 Presence of automatic (implantable) cardiac defibrillator; I25.5 Ischemic cardiomyopathy; N52.9 Male erectile dysfunction, unspecified; Z87.11 Personal history of peptic ulcer disease; I25.10 Atherosclerotic heart disease of native coronary artery without angina pectoris; K21.9 Gastro-esophageal reflux disease without esophagitis
CPT/HCPCS: A9539; C1750; C1768; C1769; C1887; C9113; C9132; J0690; J0696; J1100; J1644; J1940; J2020; J2060; J2250; J2270; J2405; J2550; J2720; J2997; J3010; J7030; J7050; J7060; P9016; P9047; Q4081

== ENCOUNTER → 2016-07-14 | Outpatient (CLI) | payer MEDICARE, MEDICAID ==
[~2016-07-14] MED LIST: ARTIFICIAL TEA1 EAC1 OPHTH; COLACE100 MG PO; COREG 3.1253.125 MG PO; COUMADIN ** IA5 MG PO; HYDROCODON-ACE1 EAC4 PO; KEFLEX500 MG PO; NORCO 5-325 TA1 EACH PO; PEPCID20 MG PO; PERCOCET 10-321 EACH PO; PROTONIX40 MG PO; PROVENTIL OR V6.7 GM INH; SENNA LAXATIVE1 EACH PO; THIAMINE HCL100 MG PO; TUMS REGULAR ST1 TAB PO; VITAMIN D50000 UNIT PO
== END | disposition disaster alternative care site (69) ==
LOC: GAMB 10:32
DX: N17.9 Acute kidney failure, unspecified (principal); R55 Syncope and collapse; R10.11 Right upper quadrant pain; I12.9 Hypertensive chronic kidney disease with stage 1 through stage 4 chronic kidney disease, or unspecified chronic kidney disease; N18.4 Chronic kidney disease, stage 4 (severe); I82.409 Acute embolism and thrombosis of unspecified deep veins of unspecified lower extremity; G89.4 Chronic pain syndrome; F32.9 Major depressive disorder, single episode, unspecified; I50.9 Heart failure, unspecified; Z88.0 Allergy status to penicillin; Z88.8 Allergy status to other drugs, medicaments and biological substances; Z79.899 Other long term (current) drug therapy
CPT/HCPCS: A0422; A0425; A0426

== ENCOUNTER 2016-08-09 12:39 | Observation (INO) | payer MEDICARE, MEDICAID ==
[~2016-08-09] VITALS: Ht 190.5 cm; Wt 112.9 kg
--- NOTE | ~2016-08-09 | CON ---
PATIENT'S NAME: JEFFREY Moss [facility] AGE: 76 Y [address] ROOM: [place] [address] LOCATION: GPCU ADMIT DATE: 08/09/2016 Consultation DISCHARGE DATE: 08/10/2016 FAMILY PHYSICIAN: ROBER MANE PA-C ATTENDING PHYSICIAN: Augustine Menon DATE OF CONSULTATION: 08/09/2016 REFERRING PHYSICIAN: Miguel Ángel Carney MD [facility] Nephrology Consultation REASON FOR CONSULTATION: Failed dialysis access, need for hemodialysis. HISTORY OF PRESENT ILLNESS: This is a 76-year-old male patient, who is known to Nephrology from previous admission, who presented to the Outpatient Interventional Radiology Lab for failed dialysis access of recently placed Accuseal graft by Dr. Dumont. The patient does have a past medical history of end-stage renal disease, on hemodialysis on Tuesday, Tuesday, and Tuesday in [place]. There were several unsuccessful attempts trying to open the right AV graft, however, this was not successful. Dr. Nunez did place a left tunneled groin catheter and the patient was sent to hemodialysis following. We are currently awaiting renal panel for further recommendations to the patient's treatment plan. At the time of exam, the patient is in no acute distress. He is tearful due to the loss of his AV graft. He does have family at the bedside. Current laboratories are pending. PAST MEDICAL HISTORY: As listed above includin. 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 2. History of DVT. 3. Ischemic cardiomyopathy status post AICD. 4. Bladder cancer. 5. Prostate cancer. 6. History of contrast nephropathy. 7. History of obstructive uropathy. 8. History of ileal conduit. 9. Peptic ulcer disease. 10. Erectile dysfunction. 11. History of tobacco abuse. PATIENT'S NAME: JEFFREY Moss [facility] AGE: 76 Y [address] ROOM: [place] [address] LOCATION: GPCU ADMIT DATE: 08/09/2016 Consultation DISCHARGE DATE: 08/10/2016 FAMILY PHYSICIAN: ROBER MANE PA-C ATTENDING PHYSICIAN: Augustine Menon PAST SURGICAL HISTORY: 1. TURP. 2. Radical cystectomy with ileal conduit formation and also radiation therapy. 3. Laminectomy. 4. Left wrist surgery. 5. Right elbow surgery. 6. AICD placement. 7. Surgical debridement of a wound dehiscence. 8. Multiple attempts to place a tunnel dialysis catheter, however, unsuccessful. 9. Recently placed right AV graft by Dr. Dumont. FAMILY HISTORY: Significant for hypertension and breast cancer in his mother. He had a brother who had coronary artery disease, and diabetes. His sister of a PE. SOCIAL HISTORY: The patient is a former smoker. He reported to have stopped smoking in 1986, but he currently continues to drink alcohol in the form of beer at least 3 to 4 a day. He denies any illicit drug use. ALLERGIES: IODINATED CONTRAST MEDIA, PENICILLIN, AND IODINE. CURRENT HOME MEDICATIONS: Include: 1. Albuterol 2 puffs inhalation q.4 hours p.r.n. shortness of breath. 2. Calcium carbonate 1 to 2 tablets p.o. daily. 3. Coreg 4.25 mg p.o. as directed. 4. Vitamin D3 takes on the 3rd of each month. 5. Artificial tears 1 drop ophthalmic b.i.d. 6. Docusate sodium 100 mg p.o. daily. 7. Pepcid 20 mg daily. 8. Hydrocodone 1 to 2 tablets p.o. q.4 hours p.r.n. pain. 9. Protonix 40 mg daily. 10. Senna 1 tablet p.o. b.i.d. 11. Thiamine 100 mg daily. 12. Warfarin 7.5 mg p.o. q.48 hours and 5 mg p.o. q.48 hours. REVIEW OF SYSTEMS: GENERAL: Denies any fever, chills, or night sweats. HEENT: Eyes; no double vision or blurred vision. Nose; no epistaxis or PATIENT'S NAME: TESS KIDD [facility] AGE: 76 Y [address] ROOM: [id number] [place], [place] [address] LOCATION: GPCU ADMIT DATE: 08/09/2016 Consultation DISCHARGE DATE: 08/10/2016 FAMILY PHYSICIAN: ROBER MANE PA-C ATTENDING PHYSICIAN: Augustine Menon rhinorrhea. Mouth; no gingival bleeding. Throat; no sore throat, hoarseness, or cough. RESPIRATORY: Denies wheezing or hemoptysis. CARDIOVASCULAR: Denies any chest pain or palpitations. GASTROINTESTINAL: Denies any nausea, vomiting, or diarrhea. GENITOURINARY: Denies any urinary complaints. MUSCULOSKELETAL: Complains of back pain and surgical incision pain. PSYCHIATRIC: Denies depression or anxiety. HEMATOLOGICAL: Denies bruising or easy bleeding. However, he does have significant clotting issues as noted from previous admissions. SKIN: No new lesions or rashes. LABORATORY DATA: WBCs 6.9, hemoglobin 9.3, hematocrit of 29.9, and platelets 254,000. Glucose 102, BUN 52, creatinine 5.6, sodium 137, potassium 4.2, chloride 103, CO2 is 23, calcium was 8.2, albumin 2.9, and phos is 3.8. INR is 0.97. PHYSICAL EXAMINATION: VITAL SIGNS: Blood pressure is 130/70, temperature is 98.3, respirations are 14, heart rate is 90, and saturations are 95% on room air. GENERAL: On exam, this is an alert and oriented, white elderly male who appears his approximate age. He is in no acute distress. HEENT: Head; normocephalic and atraumatic. Eyes; pupils are equal and react briskly to light and accommodation. EOMs are intact. Nose, midline. Mouth; no gingival bleeding. Throat is without lymphadenopathy or carotid bruits. No JVD. NECK: Soft and supple. CARDIOVASCULAR: Regular rate and rhythm with no appreciable murmurs, rubs, or thrills. RESPIRATORY: Lung sounds are clear to auscultation anteriorly and posteriorly. ABDOMEN: Soft, nontender, and nondistended. Obese. Bowel sounds are positive. GENITOURINARY: Ileal conduit is intact with yellow urine in the bag. EXTREMITIES: Show no signs of peripheral edema, clubbing, or cyanosis. NEUROLOGIC: Cranial nerves 2 through 12 are grossly intact. ASSESSMENT AND PLAN: 1. Failed dialysis access. The patient is status post right tunneled groin catheter placement by Dr. Nunez. We will plan to utilize this access for his hemodialysis at this time. The patient's outpatient clinical record will be obtained from [facility]. The patient will be on bed rest for the next 24 hours after the catheter has been placed. He will be admitted for observation and we will dialyze accordingly. We will await his chemistries for further recommendations PATIENT'S NAME: TESS KIDD [facility] AGE: 76 Y [address] ROOM: [id number] [place], [place] [address] LOCATION: GPCU ADMIT DATE: 08/09/2016 Consultation DISCHARGE DATE: 08/10/2016 FAMILY PHYSICIAN: ROBER MANE PA-C ATTENDING PHYSICIAN: Augustine Menon to his dialysis prescription. 2. End-stage renal disease, on hemodialysis therapy. The patient does have the right tunneled catheter placed at this time. He will be able to have his hemodialysis as an outpatient. We did discuss other options with the patient at the time of his admission, including peritoneal dialysis. We will contact Dr. Carney for peritoneal dialysis catheter education as well as possible placement in the upcoming future. 3. Ischemic cardiomyopathy. The patient is status post automatic implantable cardioverter-defibrillator implantation. This is stable. 4. History of bladder cancer status post chemotherapy and radiation and status post bladder resection and ileal conduit. This is stable. 5. Long-term anticoagulation in the form of Coumadin. The patient's INR is subtherapeutic. Consider Eliquis from Nephrology standpoint. This patient has been seen and assessed by Dr. Menon. His care is being conducted in consultation with Dr. Menon as well as Larissa Keating DNP, APRN. We will plan further recommendations as they are forthcoming. LARISSA KEATING DNP, APRN FOR [facility]/mihai /[id number] d: 08/10/16 1306 t: 08/25/16 1001, CONSULTATION REPORT
--- NOTE | ~2016-08-09 | CON ---
PATIENT'S NAME: TESS KIDD [facility] AGE: 76 Y [address] ROOM: [place] [address] LOCATION: GPCU ADMIT DATE: 08/09/2016 Consultation DISCHARGE DATE: 08/10/2016 FAMILY PHYSICIAN: Tracy Triana PA-C ATTENDING PHYSICIAN: Sunday Menon DATE OF CONSULTATION: 08/10/2016 REFERRING PHYSICIAN: Miguel Ángel Carney MD REASON FOR CONSULTATION: Request for PD catheter placement. HISTORY OF PRESENT ILLNESS: Tess is a 76-year-old male, who has been on hemodialysis on Tuesday, Tuesday, and Fridays via an AV fistula. Recently, the fistula failed and the patient was admitted for observation at [facility] in order to place a tunneled dialysis catheter in the left groin along with undergoing dialysis while here. Larissa Keating APRN, with Nephrology requested consultation for PD catheter placement with plans to do this as an outpatient procedure in the near future. The patient states that he watched a couple videos today during hemodialysis that is talked about peritoneal dialysis. He states that he is very interested in pursuing this. He states that he has 2 sons, who live nearby, they will help him with the transition at home. ALLERGIES: PER REVIEW OF THE CHART INCLUDE CONTRAST, PENICILLIN, IODINE. MEDICATIONS AT HOME: 1. Coreg mg p.o. as directed. 2. Coumadin 5 mg p.o. q.48 hours and 7.5 mg p.o. q.48 hours, although these were being held after he had a renal hemorrhage in the last month. 3. Vitamin D3, 50,000 units every 3 days. 4. Proventil 2 puffs inhaler q.4 hours p.r.n. for shortness of breath. 5. Seaboard 1 to 2 tablets p.o. every 4 hours. 6. Senna 1 tablet p.o. b.i.d. 7. Tums regular strength 1 to 2 tablets p.o. daily. 8. Pepcid 20 mg p.o. daily. 9. Protonix 40 mg p.o. daily. 10. Artificial Tears. 11. Thiamine 100 mg p.o. daily. 12. Colace 100 mg p.o. daily. ILLNESSES: Per prior H and P. History of bilateral lower extremity DVT; history of benign prostatic hypertrophy; history of bladder cancer, status post PATIENT'S NAME: TESS KIDD [facility] AGE: 76 Y [address] ROOM: [id number] [place], [place] [address] LOCATION: GPCU ADMIT DATE: 08/09/2016 Consultation DISCHARGE DATE: 08/10/2016 FAMILY PHYSICIAN: Tracy Triana PA-C ATTENDING PHYSICIAN: Sunday Menon chemotherapy and radiation, followed by ileal conduit with chronic urostomy and status post bladder resection; end-stage renal disease, on hemodialysis, Tuesday, Tuesday, and Fridays; history of contrast induced nephropathy; history of obstructive uropathy; history of peptic ulcer disease, the patient states that it was a perforated ulcer back in 1960, although he states he was only in the hospital 1 or 2 days and was not operated on at that time; history of 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 OPERATIONS: Bladder resection with ileal conduit and chronic urostomy, prostatectomy, knee replacement, surgery on his elbow and wrist, laminectomy with fusion, and AICD implantation. SOCIAL HISTORY: The patient lives in a handicap apartment, [address] in [place]. He has 2 sons, who live nearby. He states that he quit smoking about 20 years ago. Consumes 1 to 3 alcoholic beverages per week with a history of heavy alcohol use in the past. PHYSICAL EXAMINATION: VITAL SIGNS: Temperature 97.6, blood pressure 109/56, pulse 91, and respirations 22. GENERAL: Obese, 76-year-old male, who is sitting up on the side of the bed, alert and talkative. ABDOMEN: Exam of the abdomen shows ileal conduit in the right lower quadrant. The patient denies having any hernias in the groin or umbilical region. LABORATORY DATA: Lab work today; renal panel showed sodium 137, potassium 4.3, chloride 102, glucose 102, BUN 36, and creatinine 4.5. Again, he did undergo hemodialysis today. ASSESSMENT: 1. This is a 76-year-old male with end-stage renal disease, currently on hemodialysis, in need of peritoneal dialysis catheter. 2. History of bladder cancer, status post bladder resection with ileal conduit along with chemoradiation. 3. Status post prostatectomy. 4. Chronic congestive heart failure, both systolic and diastolic. 5. 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 PATIENT'S NAME: TESS KIDD [facility] AGE: 76 Y [address] ROOM: [address] [place] [id number] LOCATION: GPCU ADMIT DATE: 08/09/2016 Consultation DISCHARGE DATE: 08/10/2016 FAMILY PHYSICIAN: Tracy Triana PA-C ATTENDING PHYSICIAN: Sunday Menon PLAN: I discussed PD catheter insertion with the patient. I discussed the potential that we could have difficulty due to his prior bladder resection and ileal conduit. I discussed risks of the procedure including risk of bleeding, infection, injury to other structures, nonfunctioning catheter, and PD catheter infection, etc. I also discussed the fact that given his heart disease along with his other medical issues, he would be at increased risk of complications related to the general anesthetic and stress of surgery. The patient states that he would really like to proceed if possible. I discussed this patient with Dr. Carney. He will be seeing the patient momentarily. We will review over the indications, risks, and benefits etc. with the patient. We will tentatively schedule the patient for laparoscopic PD catheter placement at [facility] on August 19, 2016. We will plan to recheck lab work the morning of surgery. The patient was previously on Coumadin, but has been held due to the renal hemorrhage. I have instructed the patient to hold the Coumadin if it is restarted on discharge for 5 days preop. Our nurse from [facility] will contact the patient in the next day or 2 with instructions. If he has questions or concerns, he can let us know. Dr. Carney again will be seeing the patient momentarily, is involved in assessment and plan, and is available for supervision. MAGALIE GÓMEZ PA-C FOR MD [facility]/modl /[id number] d: 08/10/[id number] t: 08/31/162042, CONSULTATION REPORT
--- NOTE | ~2016-08-09 | HP ---
PATIENT'S NAME: JEFFREY Moss [facility] AGE: 76 Y [address] ROOM: [place] [address] [facility] ADMIT DATE: 08/09/2016 History & Physical DISCHARGE DATE: FAMILY PHYSICIAN: ROBER MANE PA-C ATTENDING PHYSICIAN: Augustine Menon DATE OF SERVICE: CHIEF COMPLAINT: Malfunction of right AV graft requiring left groin tunneled cath placement for hemodialysis. HISTORY OF PRESENT ILLNESS: This is a 76-year-old male, who has a history remarkable for end- stage renal disease, on hemodialysis every Tuesday and Tuesday and Tuesday. Usually, he goes to [facility], and gets dialysis from the right AV graft. However, today, on Tuesday, August 09, 2016, when he was trying to get the dialysis done at the [facility], the right AV graft was not working. Several hours were tried to fix the right AV graft; however, it was not successful. Therefore, the patient was admitted here to the hospital, and several attempts were tried to fix the right AV graft, but were still unsuccessful. Therefore, the patient underwent left groin tunneled catheter placement, and underwent hemodialysis today. He will be admitted for observation and scheduled for another hemodialysis tomorrow in the morning on August 10, 2016. Otherwise, the patient does not have any complaints. He denies any shortness of breath or chest pain or palpitation. In his blood work, the potassium was 4.2. Blood pressure was within normal limits. The patient feels good and denies any symptoms. REVIEW OF SYSTEMS: As mentioned in the history of present illness. All other systems were reviewed, and they were negative except those mentioned in the history of present illness. PAST MEDICAL HISTORY: 1. History of bilateral lower extremity DVT, currently not on long-term anticoagulation due to the recent history of right renal hemorrhage, status post fall on last admission on July 14, 2016 and he was discharged on July 29, 2016. He has been off anticoagulation since discharge. 2. History of benign prostatic hypertrophy, status post prostatectomy according to the patient. 3. History of bladder cancer, status post chemotherapy and radiation many years ago already finished, and also status post ileal conduit with a chronic urostomy and status post bladder resection. PATIENT'S NAME: JEFFREY Moss [facility] AGE: 76 Y [address] ROOM: [id number] [place] [id number] [facility] ADMIT DATE: 08/09/2016 History & Physical DISCHARGE DATE: FAMILY PHYSICIAN: ROBER MANE PA-C ATTENDING PHYSICIAN: Augustine Menon 4. End-stage renal disease, on hemodialysis every Mondays and Wednesdays and Fridays. 5. History of contrast-induced nephropathy in the past. 6. History of obstructive uropathy in the past. 7. Remote history of peptic ulcer disease back in 1959. 8. 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 9. History of paroxysmal atrial fibrillation. 10. History of alcoholic cardiomyopathy with an EF of less than 30% in the past, status post AICD implantation in 2015. 11. Recent admission in the hospital in June 2016 for severe sepsis secondary to UTI. ALLERGIES: CONTRAST, PENICILLIN, AND IODINE. HOME MEDICATIONS: 1. Albuterol two puffs inhalation every four hours p.r.n. for shortness of breath or wheezing. 2. Calcium carbonate 1 to 2 tablets p.o. everyday/daily. 3. Coreg 4.25 mg b.i.d. twice, and hold on dialysis days. 4. Vitamin D3, 50,000 units once every thirty days. 5. Artificial tears one drop to each eye twice a day. 6. Colace 100 mg p.o. daily p.r.n. for constipation. 7. Famotidine 20 mg p.o. daily. 8. Hydrocodone/acetaminophen 5/325 mg p.o. one to two tablets p.o. every 4 hours p.r.n. for pain. 9. Protonix 40 mg p.o. daily. 10. Senna one tablet p.o. twice a day. 11. Thiamine 100 mg p.o. daily. SOCIAL HISTORY: The patient was a former cigarette smoker, he quit in 1996. He only smoked a very little, average of one to five cigarettes per day when he was very young and only for a few years. The patient says that he is a social alcohol drinker of beer on average of about 1 to 3 days per week, but he denies any alcohol withdrawal seizure or any alcohol withdrawal symptoms or any history of delirium tremens in the past. He has been drinking for a few years. He was a heavy alcohol drinker in the past, but he already cut down to only 1 to 3 cans of beer of average three days per week. Last drink was many days ago that he could not even remember. He denies any illegal drug use. FAMILY HISTORY: Mother had hypertension and breast cancer. His brother had heart problem, but he could not remember all the details and also had diabetes. He does not PATIENT'S NAME: TESS KIDD [facility] AGE: 76 Y [address] ROOM: [address] [address] LOCATION: [facility] ADMIT DATE: 08/09/2016 History & Physical DISCHARGE DATE: FAMILY PHYSICIAN: ROBER MANE PA-C ATTENDING PHYSICIAN: Augustine Menoniaz remember much about his father. PAST SURGICAL HISTORY: 1. Status post AICD implantation in the past. 2. Bladder resection secondary to bladder cancer in the past. 3. Bladder cancer, status post bladder resection and the ileal conduit placement. 4. Benign prostatic hypertrophy and reported history of prostate cancer, status post prostatectomy in the past. 5. Status post multiple hemodialysis catheter placements in the past. PHYSICAL EXAMINATION: VITAL SIGNS: At the time of my dictation, temperature was 98.3, heart rate was 90, respirations were 14, blood pressure was 130/70, and saturation was 95% on room air. GENERAL APPEARANCE: Alert and oriented x3, in no acute distress. HEENT: Pupils were equally round and reactive to light. Extraocular muscles are intact. Anicteric sclerae. Nasal turbinates are normal bilaterally. Moist oral mucosa. NECK: No JVD. CARDIOVASCULAR: Regular rate and rhythm. Normal S1 and S2. No murmur. No rubs. No gallops. RESPIRATORY: Clear. No rales. No rhonchi. No crackles. No wheezing. ABDOMEN: Obese, soft, nontender, and nondistended. Bowel sounds are present. Ileal conduit was intact with yellow urine in the bag. EXTREMITIES: No edema in upper or lower extremities. NEUROLOGICAL: Grossly nonfocal. 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 No ulcer. No rash. No cyanosis. MUSCULOSKELETAL: No joint pain. No muscle pain. Range of motion was intact. LABORATORY DATA: White blood cells of 6.9, hemoglobin of 9.3, hematocrit of 29.9, MCV of 97.1, and platelets of 254. Glucose was 102, BUN was 52, creatinine was 5.6, sodium was 137, potassium was 4.2, chloride was 103, CO2 was 23, calcium was 8.2, albumin was 2.9, and phosphorus was 3.8. GFR is 10. Anion gap of 15.2. INR was 0.97. IMAGING STUDIES: None. ASSESSMENT AND PLAN: 1. Regarding his malfunctioning right arteriovenous graft, status post left groin tunneled catheter placement on August 09, 2016: The left groin tunneled catheter was placed by the Interventional radiologist without PATIENT'S NAME: TESS KIDD [facility] AGE: 76 Y [address] ROOM: [place] [address] LOCATION: [facility] ADMIT DATE: 08/09/2016 History & Physical DISCHARGE DATE: FAMILY PHYSICIAN: ROBER MANE PA-C ATTENDING PHYSICIAN: Augustine Menon. The patient already underwent the hemodialysis today on August 09, 2016. We will continue with another dialysis in the morning, on August 10, 2016, and then follow up with Nephrology to resume his usual Tuesday, Tuesday, and Tuesday hemodialysis unless change is necessary by high density talc coater operator determination and evaluation. The patient is instructed to be on bed rest for 24 hours to prevent bleeding of the left groin. In the morning, please touch base with Nephrology and Interventional Radiology to see when the patient can resume daily activity. The patient is also wondering when he can go back on Coumadin for history of bilateral lower extremity deep venous thrombosis and a reported history of paroxysmal atrial fibrillation. Please touch base with his primary care physician or Nephrology, given that the patient did have a right renal hemorrhage, status post fall on last admission while he was on long- term anticoagulation on last admission. The patient has been off long- term anticoagulation since discharge from the last admission. 2. Regarding his history of bilateral lower extremity deep venous thrombosis: As mentioned before, touch base with the primary care physician or high density talc coater operator to see when is the best time to resume anticoagulation in the future. 3. Alcoholic ischemic cardiomyopathy, status post AICD implantation in the past: Currently, no active issue, and there is no pain. I will get an EKG to confirm sinus rhythm. No chest pain. 4. Regarding his history of bladder cancer, status post chemotherapy and radiation and status post bladder resection with ileal conduit: No active issue. Urostomy bag is intact. The patient still makes some urine. 5. Regarding his end-stage renal disease, on hemodialysis every Mondays, Wednesdays, and Fridays: Continue to follow up with Nephrology. The patient is scheduled for another dialysis on the morning of August 10, 2016. For the care of the left groin catheter, please follow up with Interventional Radiology to see when it is appropriate to resume normal activity. On physical examination at the moment, there is no evidence of hematoma or pseudoaneurysm or bleeding. 6. Regarding his remote history of peptic ulcer disease: No active issue. This happened back in 1959. The patient denies any melena or hematochezia or hematuria or hematemesis or coffee-ground emesis. Continue antihistaminic home medication. 7. Regarding history of combined systolic and diastolic heart failure: Currently, not in acute on chronic combined systolic diastolic heart failure. No leg edema. The patient is on room air. He denies any shortness of breath. Continue dialysis in the morning. Last echo was done in November 2013; at that time, showed EF of 35% to 40% with a grade 1 diastolic dysfunction. 8. Reported history of paroxysmal atrial fibrillation: The patient is not aware of this diagnosis. The patient has been off Coumadin since last PATIENT'S NAME: TESS KIDD [facility] AGE: 76 Y [address] ROOM: [place] [address] [facility] ADMIT DATE: 08/09/2016 History & Physical DISCHARGE DATE: FAMILY PHYSICIAN: ROBER MANE PA-C ATTENDING PHYSICIAN: Augustine Menoniaz discharge from the history of right renal hemorrhage from the fall. Currently, telemetry monitoring showed sinus rhythm. I will get an EKG to confirm sinus rhythm. We will continue home Coreg with holding parameter to hold if the systolic blood pressure is less than 100. Anticoagulation will be up to the primary care physician when it will be appropriate to resume. Due to the history of right renal hemorrhage, status post from last admission, please also consider touching base with the high density talc coater operator to see when it will be appropriate to resume anticoagulation in the future. 9. Regarding his deep venous thrombosis prophylaxis: Not on long-term anticoagulation due to the history of right renal hemorrhage. Due to his history of bilateral lower extremity deep venous thrombosis, I will be very hesitant to use the compression devices at the moment. As mentioned before, please touch base with the primary care physician when and/or Nephrology will be appropriate to resume the anticoagulation in the setting of a previous history of right renal hemorrhage while on anticoagulation, status post fall. Time spent in care on the day of admission was 35 minutes including chart review, interviewing the patient, addressing all the questions and concerns that the patient had, examining the patient, and I went over the plan of care in detail with the patient and nurses. I answered all of the questions that the patient had to his satisfaction. Further plan will depend on the patient's clinical course. MD JUAN GARCIA/mihai /[id number] D: [id number] T: [id number] HISTORY & PHYSICAL
[~2016-08-09 12:39] MED LIST changes: -ARTIFICIAL TEA1 EAC1 OPHTH; -COLACE100 MG PO; -HYDROCODON-ACE1 EAC4 PO; -NORCO 5-325 TA1 EACH PO; -PEPCID20 MG PO; -PROTONIX40 MG PO; -SENNA LAXATIVE1 EACH PO; -THIAMINE HCL100 MG PO; -TUMS REGULAR ST1 TAB PO
[2016-08-09 13:22] LABS: BASOPHIL # 0.1 K/uL (0.0-0.2); BASOPHIL % 0.9 %; EOSINOPHIL # 0.2 K/uL (0.0-0.5); EOSINOPHIL % 2.5 %; HEMATOCRIT 29.9 % (37.0-53.0); HEMOGLOBIN 9.3 g/dL (11.0-16.0); IMMATURE GRANULOCYTE # 0.3 K/uL (0.0-0.3); IMMATURE GRANULOCYTE % 4.4 %; LYMPHOCYTE # 1.2 K/uL (0.8-4.0); LYMPHOCYTE % 17.6 %; MCH 30.2 pg (27.0-34.0); MCHC 31.1 gm/dL (32.0-36.5); MCV 97.1 fl (83.0-98.0); MONOCYTE # 0.6 K/uL (0.0-1.0); MPV 8.8 fl (9.4-12.4); NEUTROPHIL # (ANC) 4.5 K/uL (1.4-9.0); NEUTROPHIL % 65.6 %; NRBC % 0 /100WBC (0-0.00); PLATELET COUNT 254 K/uL (150-450); RBC 3.08 M/uL (3.50-5.50); RDW-CV 15.6 % (11.9-14.6); WBC 6.9 K/uL (4.0-11.0)
[2016-08-09 13:28] LABS: INR - (THERAPEUTIC) 0.97 (0.92-1.07); PROTIME 10.2 SECONDS (9.8-11.4)
[2016-08-09] MEDS ORDERED: HYDROCODON-ACE1 EAC4 PO (13:46)
[2016-08-09] MEDS ORDERED: SENNA LAXATIVE1 EACH PO (13:52)
[2016-08-09] MEDS ORDERED: TUMS REGULAR ST1 TAB PO (13:53)
[2016-08-09] MEDS ORDERED: PEPCID20 MG PO (13:53)
[2016-08-09] MEDS ORDERED: PROTONIX40 MG PO (13:54)
[2016-08-09] MEDS ORDERED: ARTIFICIAL TEA1 EAC1 OPHTH (13:55)
[2016-08-09] MEDS ORDERED: THIAMINE HCL100 MG PO (13:56)
[2016-08-09] MEDS ORDERED: COLACE100 MG PO (13:57)
[2016-08-09 17:56] LABS: ALBUMIN 2.9 gm/dL (3.5-5.0); ANION GAP 15.2 (10.0-19.0); CALCIUM 8.2 mg/dL (8.5-10.5); PHOSPHORUS 3.8 mg/dL (2.5-4.9); POTASSIUM 4.2 mMol/L (3.7-5.1)
[2016-08-09 17:58] LABS: CREATININE 5.6 mg/dL (0.6-1.3)
[2016-08-10 05:54] LABS: ALBUMIN 2.8 gm/dL (3.5-5.0); ANION GAP 14.3 (10.0-19.0); PHOSPHORUS 4.1 mg/dL (2.5-4.9); POTASSIUM 4.3 mMol/L (3.7-5.1)
[2016-08-10 05:57] LABS: CREATININE 4.5 mg/dL (0.6-1.3)
[2016-08-19] MEDS ORDERED: NORCO 5-325 TA1 EACH PO (10:47)
== END 2016-08-10 14:56 | disposition disaster alternative care site (69) ==
LOC: GRAD 12:39 → GPCU 18:00
PROVIDERS: Nurse Practitioner; ADMIT Internal Medicine Nephrology
PROC: 06H033Z Insertion of Infusion Device into Inferior Vena Cava, Percutaneous Approach (ICD-10-PCS; principal; 2016-08-09)
PROC: B519ZZA Fluoroscopy of Inferior Vena Cava, Guidance (ICD-10-PCS; 2016-08-09)
PROC: 5A1D60Z (ICD-10-PCS; 2016-08-09)
PROC: 5A1D60Z (ICD-10-PCS; 2016-08-10)
DX: T82.868A Thrombosis due to vascular prosthetic devices, implants and grafts, initial encounter (principal); N18.6 End stage renal disease; I25.5 Ischemic cardiomyopathy; I48.0 Paroxysmal atrial fibrillation; I50.42 Chronic combined systolic (congestive) and diastolic (congestive) heart failure; Z87.891 Personal history of nicotine dependence; Z88.0 Allergy status to penicillin; Z88.8 Allergy status to other drugs, medicaments and biological substances; Z90.49 Acquired absence of other specified parts of digestive tract; Z85.51 Personal history of malignant neoplasm of bladder; Z98.890 Other specified postprocedural states; Z90.79 Acquired absence of other genital organ(s); Z79.899 Other long term (current) drug therapy
CPT/HCPCS: C1725; C1769; C1887; C1894; G0378; J1642; J1644; J1756; J2997; P9047; Q4081

== ENCOUNTER → 2016-08-19 | Day surgery (SDC) | payer MEDICARE, MEDICAID ==
[~2016-08-19] VITALS: Ht 190.5 cm; Wt 113.0 kg
[~2016-08-19] MED LIST changes: +ARTIFICIAL TEA1 EAC1 OPHTH; +COLACE100 MG PO; +HYDROCODON-ACE1 EAC4 PO; +NORCO 5-325 TA1 EACH PO; +PEPCID20 MG PO; +PROTONIX40 MG PO; +SENNA LAXATIVE1 EACH PO; +THIAMINE HCL100 MG PO; +TUMS REGULAR ST1 TAB PO
--- NOTE | ~2016-08-19 | OR ---
PATIENT'S NAME: TESS MURPHY [facility] AGE: 76 Y [address] ROOM: [place] [address] [place] [facility] [place] DATE: 08/19/2016 OR/Procedure Report DISCHARGE DATE: FAMILY PHYSICIAN: ROBER MANE PA-C ATTENDING PHYSICIAN: Miguel Ángel Carney SURGEON: Miguel Ángel Carney MD LAUNDRY AGENT: Fara Gregg PA-C, who was necessary for retraction and visualization throughout the case. DATE OF PROCEDURE: 08/19/2016 REFERRING PHYSICIANS: 1. Dr. Menon. 2. Dr. Olivas. PREOPERATIVE DIAGNOSIS: End-stage renal disease, with desire for peritoneal dialysis. POSTOPERATIVE DIAGNOSIS: End-stage renal disease, with desire for peritoneal dialysis. PROCEDURE PERFORMED: Laparoscopic peritoneal dialysis catheter placement. FINDINGS: At the conclusion, the port had free flow of fluid both into and out of the abdomen. ESTIMATED BLOOD LOSS: Less than 20 mL. COMPLICATIONS: None. INDICATIONS: The patient is a 76-year-old male with end-stage renal disease. He had desired for peritoneal dialysis. We discussed peritoneal dialysis catheter placement with the patient; the risks, benefits, and alternatives, and he elected to proceed. DESCRIPTION OF PROCEDURE: The patient was taken to the operating room. When he was supine, he was given IV sedation and subsequently intubated. A Steri- Drape was placed to isolate his urostomy. His abdomen was prepped with ChloraPrep and sterilely draped. A small incision was created in the right upper quadrant. Using an optical viewing trocar, the abdominal cavity was entered. Pneumoperitoneum was induced. Following this, we examined the abdomen. There were adhesions in the pelvis; however, the bowel was sufficiently mobile for us to be able to place our catheter into the pelvis. We selected our entrance site on the left abdominal wall just inferior to the umbilicus. A transverse incision was created in this area and carried down to the anterior rectus sheath using electrocautery. A pursestring suture was PATIENT'S NAME: TESS MURPHY [facility] AGE: 76 Y [address] ROOM: [place] [address] [place] [facility] [place]: 08/19/2016 OR/Procedure Report DISCHARGE DATE: FAMILY PHYSICIAN: ROBER MANE PA-C ATTENDING PHYSICIAN: Miguel Ángel Carney placed around the anterior rectus sheath. An 8 mm trocar was then inserted through the anterior rectus sheath through the rectus and advanced in the retrorectus space inferiorly into the midline. The abdominal cavity was then entered. A curl-tipped double-cuffed catheter was then inserted. This was placed into the pelvis. The insertion device was removed as well as the 8 mm port. The cuff was placed in the retrorectus space. The pursestring suture was then secured. The proximal end of the catheter was tunneled cephalad, leaving the second cuff within the subcutaneous tissues. The operative field was inspected. The luer lock was placed onto the catheter. Saline was infused in the abdominal cavity. 300 mL were infused with greater than 250 mL returned. Once this was completed, the pneumoperitoneum had been released. The trocars were removed. The incisions were closed with 4-0 Monocryl suture. The transfer set was placed on the peritoneal dialysis catheter. This was flushed with heparinized saline. Sterile dressings were placed. The patient tolerated the procedure well. MD JASMINA BELLAO/modl /[id number] d: 08/19/16 1656 t: 08/31/163, OPERATIVE SUMMARY
[2016-08-19 07:59] LABS: BASOPHIL # 0.1 K/uL (0.0-0.2); BASOPHIL % 1.1 %; EOSINOPHIL # 0.1 K/uL (0.0-0.5); EOSINOPHIL % 3.1 %; HEMATOCRIT 31.6 % (37.0-53.0); HEMOGLOBIN 9.6 g/dL (11.0-16.0); IMMATURE GRANULOCYTE # 0.1 K/uL (0.0-0.3); IMMATURE GRANULOCYTE % 1.6 %; LYMPHOCYTE % 22.5 %; MCH 30.5 pg (27.0-34.0); MCHC 30.4 gm/dL (32.0-36.5); MCV 100.3 fl (83.0-98.0); MONOCYTE # 0.4 K/uL (0.0-1.0); MONOCYTE % 9.2 %; NEUTROPHIL # (ANC) 2.8 K/uL (1.4-9.0); NEUTROPHIL % 62.5 %; NRBC % 0 /100WBC (0-0.00); PLATELET COUNT 235 K/uL (150-450); RBC 3.15 M/uL (3.50-5.50); RDW-CV 16.9 % (11.9-14.6); WBC 4.5 K/uL (4.0-11.0)
[2016-08-19 08:19] LABS: ALBUMIN 3.1 gm/dL (3.5-5.0); ANION GAP 10.4 (10.0-19.0); CALCIUM 8.3 mg/dL (8.5-10.5); CREATININE 3.4 mg/dL (0.6-1.3); POTASSIUM 4.4 mMol/L (3.7-5.1); TOTAL PROTEIN 6.7 g/dL (6.0-8.4)
[2016-08-19 08:21] LABS: TOTAL BILIRUBIN 0.9 mg/dL (0.0-1.5)
--- NOTE | 2016-08-19 13:20 | NUR ---
1225 TO CAR, WHEN TRANSFERRED OVER AND SAT IN FRONT SEAT DRESSING TO CATH SITE WAS 1/2 SATURATED WITH SEROUS BLOODY DRAINAGE. PT DBROUGHT BACK INTO ROOM, DRESSING CHANGED. STERI-STRIPS INTACT, CATHETER INTACT, NO ACTIVE BLEEDING NOTED. GAUZE 4X4'S APPLIED AND TEGADERM.
== END | disposition disaster alternative care site (69) ==
LOC: GPOC 08-13 11:00 → GSDC 07:14
PROVIDERS: Surgery
PROC: 0WHG43Z Insertion of Infusion Device into Peritoneal Cavity, Percutaneous Endoscopic Approach (ICD-10-PCS; principal; 2016-08-19)
DX: I13.2 Hypertensive heart and chronic kidney disease with heart failure and with stage 5 chronic kidney disease, or end stage renal disease (principal); N18.6 End stage renal disease; I50.40 Unspecified combined systolic (congestive) and diastolic (congestive) heart failure; I48.0 Paroxysmal atrial fibrillation; I42.6 Alcoholic cardiomyopathy; Z99.2 Dependence on renal dialysis; Z87.891 Personal history of nicotine dependence; Z90.79 Acquired absence of other genital organ(s); Z98.890 Other specified postprocedural states; Z95.0 Presence of cardiac pacemaker; Z85.46 Personal history of malignant neoplasm of prostate; Z79.899 Other long term (current) drug therapy
CPT/HCPCS: C1750; C1881; J0690; J1642; J2001; J7120